=== PATIENT | female | born 1955 | race Caucasian/White ===

== ENCOUNTER 2022-06-09 08:18 | Outpatient (REF) | payer OTHER, SELFPAY ==
[2022-06-09 08:39] LABS: MANUAL DIFF FLAG NO
[2022-06-09 08:57] LABS: Basophils Percent Auto 0.5 % (0-2); Eosinophils Absolute Auto 0.2 X10*3/uL (0.0-0.4); Eosinophils Percent Auto 2.8 % (0-4); Hematocrit 40.2 % (37.0-47.0); Hemoglobin 13.7 g/dl (12.0-16.0); Imm Gran Abs Auto 0.03 X10*3/uL (0.00-0.03); Imm Gran Pct Auto 0.5 % (0.0-0.4); Lymphocytes Absolute Auto 2.2 X10*3/uL (1.2-4.9); Lymphocytes Percent Auto 35.3 % (20-40); Mean Corpuscular HGB Conc 34.1 g/dl (31.0-35.0); Mean Corpuscular Hemoglobin 30.2 pg (27.0-33.0); Mean Corpuscular Volume 88.5 fL (80.0-98.0); Mean Platelet Volume 9.8 fL (9.4-12.3); Monocytes Absolute Auto 0.4 X10*3/uL (0.1-1.2); Monocytes Percent Auto 6.8 % (2-11); Neutrophils Absolute Auto 3.3 x10*3/uL (2.0-8.3); Neutrophils Percent Auto 54.1 % (45-73); Platelet Count 242 X10*3/uL (160-400); Red Blood Count 4.54 X10*6/uL (4.20-5.50); Red Cell Distribution Width 12.4 % (11.0-16.0); White Blood Count 6.2 X10*3/uL (4.8-10.8)
[2022-06-09 09:16] LABS: Alanine Aminotransferase 18 U/L (0-31); Albumin Level 4.5 g/dL (3.5-5.0); Alkaline Phosphatase 66 U/L (39-117); Anion Gap 15 (12-20); Aspartate Amino Transferase 22 U/L (5-31); Bilirubin Total 0.9 mg/dL (0.0-1.0); Blood Urea Nitrogen 19 mg/dL (9-16); Calcium 9.4 mg/dL (8.4-10.2); Carbon Dioxide 26 mmol/L (22-29); Chloride 106 mmol/L (96-108); Cholesterol 167 mg/dL; Estimated Glomerular Filt Rate > 60; Glucose Fasting 98 mg/dL (60-99); HDL Cholesterol 60 mg/dL; LDL Cholesterol Calculated 85 mg/dl; Potassium 5.1 mmol/L (3.3-5.1); Sodium 142 mmol/L (135-145); Total Protein 7.2 g/dL (6.5-8.0); Triglycerides 114 mg/dL
[2022-06-09 09:40] LABS: Vitamin D 25-OH Total 38.6 ng/mL (>30)
[2022-06-09 09:57] LABS: Appearance Urine HAZY; Color Urine YELLOW; Glucose Urine UA NEG (NEG); Leukocyte Esterase Urine 3+ (NEG); Nitrite Urine NEG (NEG); Urine Blood 2+ (NEG); Urine Ketones NEG (NEG); Urine Protein NEG (NEG-TRACE)
[2022-06-09 11:00] LABS: Bacteria Urine 3+ /LPF; Renal Epithelial Cells Urine TRACE /LPF; Squamous Epithelial Cell Urine 3+ /LPF; WBC Urine 50-75 /HPF (0-4)
== END 2022-06-09 08:19 | disposition home or self-care (01) ==
LOC: HO.LAB 08:18
PROVIDERS: PCP Internal Medicine; Visit Provider Internal Medicine
DX: E78.00 Pure hypercholesterolemia, unspecified (principal); K21.9 Gastro-esophageal reflux disease without esophagitis; M81.0 Age-related osteoporosis without current pathological fracture; R31.9 Hematuria, unspecified
CPT/HCPCS: 36415; 80053; 80061; 81001; 82306; 85025

== ENCOUNTER 2022-06-19 11:35 | Outpatient (REF) | payer OTHER, SELFPAY ==
[2022-06-19 14:55] LABS: Appearance Urine Clear; Color Urine Dark Yellow; Glucose Urine UA Negative (Negative); Leukocyte Esterase Urine Small (1+) (Negative); Nitrite Urine Negative (Negative); PH 5.5 (5.0-8.0); Urine Blood Negative (Negative); Urine Ketones Trace mg/dL (Negative); Urine Protein Negative (Neg-Trace)
[2022-06-19 15:03] LABS: Bacteria Urine None Seen (None Seen); Hyaline Casts Urine 0-2 /LPF (0-2); Squamous Epithelial Cell Urine 0-2 /HPF (0-2); UACC Culture Trigger YES
== END 2022-06-19 11:36 | disposition home or self-care (01) ==
LOC: HO.LAB 11:35
PROVIDERS: Visit Provider Urology
DX: N39.0 Urinary tract infection, site not specified (principal)
CPT/HCPCS: 81001; 87086

== ENCOUNTER 2022-12-30 15:29 | Outpatient (REF) | payer MEDICARE, SELFPAY ==
[2022-12-30 15:52] LABS: MANUAL DIFF FLAG NO
[2022-12-30 16:28] LABS: Basophils Percent Auto 0.5 % (0-2); Eosinophils Absolute Auto 0.2 X10*3/uL (0.0-0.4); Eosinophils Percent Auto 2.6 % (0-4); Hematocrit 39.1 % (37.0-47.0); Hemoglobin 13.8 g/dl (12.0-16.0); Imm Gran Abs Auto 0.03 X10*3/uL (0.00-0.03); Imm Gran Pct Auto 0.5 % (0.0-0.4); Lymphocytes Absolute Auto 2.3 X10*3/uL (1.2-4.9); Lymphocytes Percent Auto 34.9 % (20-40); Mean Corpuscular HGB Conc 35.3 g/dl (31.0-35.0); Mean Corpuscular Hemoglobin 30.7 pg (27.0-33.0); Mean Corpuscular Volume 87.1 fL (80.0-98.0); Mean Platelet Volume 9.8 fL (9.4-12.3); Monocytes Absolute Auto 0.5 X10*3/uL (0.1-1.2); Monocytes Percent Auto 6.8 % (2-11); Neutrophils Absolute Auto 3.6 x10*3/uL (2.0-8.3); Neutrophils Percent Auto 54.7 % (45-73); Platelet Count 251 X10*3/uL (160-400); Red Blood Count 4.49 X10*6/uL (4.20-5.50); Red Cell Distribution Width 12.7 % (11.0-16.0); White Blood Count 6.6 X10*3/uL (4.8-10.8)
[2022-12-30 17:02] LABS: Anion Gap 13 (12-20); Blood Urea Nitrogen 14 mg/dL (9-16); Calcium 9.1 mg/dL (8.4-10.2); Carbon Dioxide 28 mmol/L (22-29); Chloride 104 mmol/L (96-108); Estimated Glomerular Filt Rate > 60; Glucose Random 91 mg/dL (60-115); Potassium 4.2 mmol/L (3.3-5.1); Sodium 141 mmol/L (135-145)
[2022-12-30 17:45] LABS: Appearance Urine Clear; Color Urine Yellow; Glucose Urine UA Negative (Negative); Leukocyte Esterase Urine Moderate (2+) (Negative); Nitrite Urine Negative (Negative); PH 5.5 (5.0-9.0); Specific Gravity - Urine 1.015 (1.005-1.025); UMIC TRIGGER UACC YES; Urine Blood Small (1+) (Negative); Urine Ketones Negative (Negative); Urine Protein Trace mg/dL (Neg-Trace)
[2022-12-30 18:02] LABS: Bacteria Urine None Seen (None Seen); Hyaline Casts Urine 0-2 /LPF (0-2); Squamous Epithelial Cell Urine 0-2 /HPF (0-2); UACC Culture Trigger YES; WBC Urine 21-50 /HPF (0-5)
== END 2022-12-30 15:30 | disposition home or self-care (01) ==
LOC: HO.LAB 15:29
PROVIDERS: PCP Internal Medicine; Visit Provider Internal Medicine
DX: Z01.818 Encounter for other preprocedural examination (principal); N21.0 Calculus in bladder
CPT/HCPCS: 36415; 80048; 81001; 85025; 87086

== ENCOUNTER → 2023-01-08 07:39 | Outpatient (REF) | payer MEDICARE, SELFPAY ==
--- NOTE | 2023-01-08 | CA_ITS ---
Acquisition Time: 2023-01-08 08:06:24 Total Exercise Time: 00:06:00 Test Indications: ABN EKG Medications: SEE CHART Protocol: JULIEN Max HR: 144 BPM 95% of Pred: 151 BPM Max BP: 150/070 mmHG Max Work Load: 7.0 METS PT EXERCISED ON STD JULIEN PROTOCOL FOR 6 MIN THRU STAGE 2. MAX HR 144-95%MAX. NO CP. NO EKG CHANGES. MILD SOB FROM DECONDITIONING. CLINICALLY AND ELEC NEG Referred By: Gagandeep Mccoy Overread By: ANDREA MCCOY MD
== END ==
LOC: HO.CARD 07:39
PROVIDERS: Visit Provider Internal Medicine
DX: R94.31 Abnormal electrocardiogram [ECG] [EKG] (principal)
CPT/HCPCS: 93017

== ENCOUNTER 2023-04-24 08:33 | Outpatient (REF) | payer MEDICARE, SELFPAY ==
[2023-04-24 11:27] LABS: MANUAL DIFF FLAG NO
[2023-04-24 11:30] LABS: Appearance Urine Clear; Color Urine Yellow; Glucose Urine UA Negative (Negative); Leukocyte Esterase Urine Negative (Negative); Nitrite Urine Negative (Negative); PH 5.5 (5.0-9.0); Specific Gravity - Urine 1.015 (1.005-1.025); Urine Blood Negative (Negative); Urine Ketones Negative (Negative); Urine Protein Negative (Neg-Trace)
[2023-04-24 11:39] LABS: Basophils Percent Auto 0.4 % (0-2); Eosinophils Absolute Auto 0.1 X10*3/uL (0.0-0.4); Eosinophils Percent Auto 2.4 % (0-4); Hematocrit 40.5 % (37.0-47.0); Hemoglobin 13.8 g/dl (12.0-16.0); Imm Gran Abs Auto 0.01 X10*3/uL (0.00-0.03); Imm Gran Pct Auto 0.2 % (0.0-0.4); Lymphocytes Absolute Auto 2.3 X10*3/uL (1.2-4.9); Lymphocytes Percent Auto 42.7 % (20-40); Mean Corpuscular HGB Conc 34.1 g/dl (31.0-35.0); Mean Corpuscular Hemoglobin 29.1 pg (27.0-33.0); Mean Corpuscular Volume 85.4 fL (80.0-98.0); Mean Platelet Volume 10.1 fL (9.4-12.3); Monocytes Absolute Auto 0.4 X10*3/uL (0.1-1.2); Monocytes Percent Auto 7.1 % (2-11); Neutrophils Absolute Auto 2.6 x10*3/uL (2.0-8.3); Neutrophils Percent Auto 47.2 % (45-73); Platelet Count 258 X10*3/uL (160-400); Red Blood Count 4.74 X10*6/uL (4.20-5.50); Red Cell Distribution Width 12.3 % (11.0-16.0); White Blood Count 5.5 X10*3/uL (4.8-10.8)
[2023-04-24 12:16] LABS: Alanine Aminotransferase 12 U/L (0-31); Albumin Level 4.4 g/dL (3.5-5.0); Alkaline Phosphatase 74 U/L (39-117); Anion Gap 12 (12-20); Aspartate Amino Transferase 23 U/L (5-31); Bilirubin Total 1.1 mg/dL (0.0-1.0); Blood Urea Nitrogen 19 mg/dL (9-16); Calcium 9.6 mg/dL (8.4-10.2); Carbon Dioxide 24 mmol/L (22-29); Chloride 108 mmol/L (96-108); Cholesterol 201 mg/dL; Estimated Glomerular Filt Rate > 60; Glucose Fasting 96 mg/dL (60-99); HDL Cholesterol 53 mg/dL; LDL Cholesterol Calculated 130 mg/dl; Potassium 4.1 mmol/L (3.3-5.1); Sodium 140 mmol/L (135-145); Total Protein 7.2 g/dL (6.5-8.0); Triglycerides 92 mg/dL
[2023-04-24 12:19] LABS: Creatinine Urine 116.16 mg/dL
[2023-04-24 12:33] LABS: TSH reflex Free T4 2.14 uIU/mL (0.32-4.0)
== END 2023-04-24 08:34 | disposition home or self-care (01) ==
LOC: HO.HMGCLDS 08:33
PROVIDERS: PCP Family Medicine; Visit Provider Family Medicine
DX: Z00.00 Encounter for general adult medical examination without abnormal findings (principal); I10 Essential (primary) hypertension
CPT/HCPCS: 36415; 80053; 80061; 81003; 82043; 84443; 85025

== ENCOUNTER 2023-06-10 13:45 | Outpatient (AMB) | payer MEDICARE, SELFPAY ==
--- NOTE | 2023-06-10 13:47 | MHC.PC.OV ---
Vital Signs 06/10/23 13:49 Height 5 ft 1 in Weight 164 lb 4 oz BMI 31.0 BP 110/70 Blood Pressure Location Lt brachial Position Sitting Pulse 67 Pulse Source Pulse Oximeter Pulse Oximetry (%) 98 Oxygen Delivery Method Room Air Intake Visit Reasons: CPE with f/u labs and health maintenance Intake Note: Patient is here for her physical today, she is looking for dermatology referral. Allergies cobalt Allergy (Unknown, Verified 06/10/23 13:53) Eye Swelling anesthesia Adverse Reaction (Mild, Uncoded 06/10/23 13:53) Nausea and Vomiting Narcotic Medications Adverse Reaction (Mild, Uncoded 06/10/23 13:53) Nausea and Vomiting Tobacco use date assessed: 06/10/23 Fall risk assessment: No Falls in past year Last assessed Fall Risk: 06/10/23 Dental Screening Dental Screen Date: 06/10/23 Did you have a dental visit in the last 12 months?: No Did you have a dental problem in the last 6 months where you did not have access to dental care?: No Was dental information given to patient?: Patient declined HPI CPE with f/u labs and health maintenance HPI Details 67 y/o female presents for a CPE with f/u labs and health maintenance. Labs were drawn 04/24/23. Reviewed labs with pt. Triglycerides 92. TC 201. LDL 130. HDL 53. She is on simvastatin 40mg daily. Pt reports ongoing concerns about a spot on her cheek and states she has never gotten a call from dermatology. 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 Norberto Staton, Tresa Mckenna, Ivna Schneider and colleagues, with an educational gutierrez from [employer]. Review of Systems Const Denies chills, Denies fatigue, Denies fever(s), Denies headache(s) and Denies weakness Eyes Denies change in vision ENT Denies dizziness, Denies headache(s), Denies hearing loss, Denies nasal congestion, Denies sinus pain, Denies sinus pressure and Denies sore throat Card Denies chest pain, Denies lightheadedness, Denies dyspnea and Denies other (palpitations) Resp Denies cough, Denies dyspnea and Denies wheezing GI Denies abdominal pain, Denies melena, Denies hematochezia, Denies change in bowel habits, Denies dyspepsia and Denies nausea Denies hematuria and Denies dysuria Musc Denies abnormal gait, Denies myalgias, Denies arthralgias, Denies numbness and Denies tingling Skin/Breast Denies rash, Denies unusual bruising and Denies wounds Neuro Denies abnormal gait, Denies dizziness, Denies headache(s), Denies memory loss, Denies numbness, Denies Sensory deficit (Neuro), Denies tingling and Denies weakness Psych Denies anxiety, Denies depression and Denies memory loss Endo Denies cold intolerance, Denies fatigue, Denies heat intolerance, Denies polydipsia and Denies polyuria Shankar/Lymph Denies easy bleeding and Denies easy bruising Aller/Immun Denies wheezing Physical exam (Primary Care) Vital Signs: Last Vital Signs Pulse 67 06/10/23 13:49 BP 110/70 06/10/23 13:49 Pulse Ox 98 06/10/23 13:49 Oxygen Delivery Method Room Air 06/10/23 13:49 BMI result Body Mass Index 31.0 Tobacco/Smoking Status: Tobacco use Status Tobacco use date assessed 06/10/23 06/10/23 14:01 Patient Tobacco Use Status Never used Tobacco 06/10/23 13:49 e-Cigarette/Vaping Use Never Used 06/10/23 13:49 Thrive Assessment: Date of Thrive Assessment Date Thrive assessed 04/16/23 06/10/23 13:49 Const General: no acute distress, well developed, alert and awake Nutritional Appearance: well nourished Orientation/consciousness: patient oriented x3 HENMT Head: Yes normocephalic and Yes atraumatic Ears: hearing grossly normal bilaterally and TM's normal bilaterally General nose exam: Normal external nose present and Normal nares present Mouth: Normal oral and palatal mucosa present and moist mucous membranes Teeth and gingiva: dentition normal Throat: Yes posterior oropharynx normal Eyes General: appearance normal, both eyes and all related structures Pupils: Equal, round and reactive pupils present and Pupil accommodation reflex normal EOM: EOMs intact bilaterally Neck Neck: Yes normal visual inspection, Yes no lymphadenopathy and Yes trachea midline Thyroid: Thyroid normal Carotids: no bruits Lymphatic: no lymphadenopathy noted Chest Chest palpation & inspection: normal inspection of the chest Resp Effort & Inspection: normal respiratory effort Auscultation: clear to auscultation bilaterally Cardio Rate: regular rate Rhythm: regular rhythm Heart sounds: S1 normal heart sound present, S2 normal heart sound present, no gallops, no murmurs and no rubs Bruits: no abdominal aortic bruits and no carotid bruits GI Palpation (GI): No Abdominal aortic bruit present, Soft to palpation, nontender, No hepatosplenomegaly present and No Rebound tenderness present Auscultation: normal bowel sounds General: Yes no CVA tenderness Back/Spine/Pelvis Back: no CVA tenderness Cervical Spine: cervical ROM normal and No Cervical spine tenderness Thoracic/Lumbar Spine: thoraco-lumbar ROM normal, No pain with thoraco-lumbar ROM, No thoracic spinal tenderness and No lumbar spinal tenderness Skin Other: Melanotic lesion on the side of her L cheek about 1.5cm in diameter Lesions: no lesions Rashes: no rashes Trauma: no lacerations or abrasions Wounds: no wounds Nails: normal Neuro General: patient oriented x3 Cranial nerves: Yes Equal, round and reactive pupils present Cognition (Neuro): normal cognition Gait exam (Neuro): Normal gait present Motor exam (neuro): 5/5 motor strength present throughout Sensory Exam: No Sensory deficit (Neuro) Deep tendon reflexes (DTR's): Right patellar reflex intensity grade: 2+ and Left patellar reflex intensity grade: 2+ Extrem General: Yes normal to inspection and No edema Psych Appearance: grossly normal Affect: normal affect Attitude: cooperative Thought process: Normal thought process present Assessment and Plan Assessment & Plan (1) Neoplasm of uncertain behavior of skin: Code(s): D48.5 - Neoplasm of uncertain behavior of skin Plan: Referred to dermatology at patient request (2) Hyperlipidemia: Code(s): E78.5 - Hyperlipidemia, unspecified Plan: She is on simvastatin LDL cholesterol is borderline but her HDL ratios are okay Encouraged diet lower in saturated fats and cholesterol Continue simvastatin as prescribed (3) Breast cancer screening by mammogram: Code(s): Z12.31 - Encounter for screening mammogram for malignant neoplasm of breast Plan: Due for mammogram-ordered (4) Screening for colon cancer: Code(s): Z12.11 - Encounter for screening for malignant neoplasm of colon Plan: Patient had a colonoscopy 1-2 years ago in [place]. She was told to follow-up in 5 years She is up-to-date (5) Immunization counseling: Code(s): Z71.85 - Encounter for immunization safety counseling Plan: Recommended pneumonia shot, flu shot and RSV. She has gotten her shingles shot Also discussed hepatitis B shot though patient is rather low risk Orders: Orders MM screening mammo BI Today Z12.31 - Encounter for screening mammogram for malignant neoplasm of breast Referrals Dermatology Referral D48.5 - Neoplasm of uncertain behavior of skin Coding Level of Care Code Est Pt Level 3 (06460) Est Pt Prev Care >65y(34616) Diagnoses Neoplasm of uncertain behavior of skin D48.5 Hyperlipidemia E78.5 Breast cancer screening by mammogram Z12.31 Screening for colon cancer Z12.11 Immunization counseling Z71.85
[2023-06-10 13:49] VITALS: BP 110/70; PULSE 67; O2SAT 98; BMI 31.0
== END 2023-06-10 14:34 | disposition home or self-care (01) ==
PROVIDERS: PCP Family Medicine; Visit Provider Family Medicine
DX: Z00.00 Encounter for general adult medical examination without abnormal findings (principal); D48.5 Neoplasm of uncertain behavior of skin; E78.5 Hyperlipidemia, unspecified; Z71.85 Encounter for immunization safety counseling
CPT/HCPCS: 99397

== ENCOUNTER 2023-07-10 08:37 | Outpatient (REF) | payer MEDICARE, SELFPAY | END 2023-07-10 08:38 | disposition home or self-care (01) | LOC: HO.MAMMO 08:37 | PROVIDERS: PCP Family Medicine; Visit Provider Family Medicine | DX: Z12.31 Encounter for screening mammogram for malignant neoplasm of breast (principal) | CPT/HCPCS: 77063; 77067 ==

== ENCOUNTER → 2023-07-10 08:45 | Outpatient (BNV) | payer MEDICARE, SELFPAY | PROVIDERS: PCP Family Medicine; Visit Provider Radiology Diagnostic Radiology | DX: Z12.31 Encounter for screening mammogram for malignant neoplasm of breast (principal) | CPT/HCPCS: 77063; 77067 ==

== ENCOUNTER 2023-12-30 08:27 | Outpatient (AMB) | payer MEDICARE, SELFPAY ==
[2023-12-30 08:31] VITALS: BP 130/70; PULSE 76; TEMP 36.3; O2SAT 97; BMI 31.0
--- NOTE | 2023-12-30 08:31 | AM.OFFWIN_ITS ---
Intake Vital Signs 12/30/23 08:31 Height 5 ft 1 in Weight 164 lb BMI 31.0 BP 130/70 Blood Pressure Location Lt brachial Position Sitting Pulse 76 Pulse Source Pulse Oximeter Temp 97.4 F Temp Source Temporal Artery Scan Pulse Oximetry (%) 97 Oxygen Delivery Method Room Air Intake Visit Reasons: EP Lft back leg pain Intake Note: pt is here today for lft back leg pain started Patient Tobacco Use Status: Never used Tobacco Allergies cobalt Allergy (Unknown, Verified 12/30/23 08:32) Eye Swelling anesthesia Adverse Reaction (Mild, Uncoded 06/10/23 13:53) Nausea and Vomiting Narcotic Medications Adverse Reaction (Mild, Uncoded 06/10/23 13:53) Nausea and Vomiting Do you need a note to return to daycare/school/sports/work: No HPI HPI Comments History of Present Illness Details 68 y/o female patient who presents to [facility] in clinic with c/o left lower leg pain - back of the knee. Pt injured her leg back in March, and has since been applying heat/ice, stretching and taking NSAIDs with no much relief. Pt is worried that she might have injured ligaments or Tendons. 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 Cognitive needs: No Hearing needs: No Vision needs: Yes (Last eye exam 2021) Review of Systems Const All systems reviewed & are unremarkable except as noted in HPI and below Physical Exam Vital Signs: Last Vital Signs Temp 97.4 F 12/30/23 08:31 Pulse 76 12/30/23 08:31 BP 130/70 12/30/23 08:31 Pulse Ox 97 12/30/23 08:31 Oxygen Delivery Method Room Air 12/30/23 08:31 BMI result Body Mass Index 31.0 Const General: comfortable and no acute distress Orientation/consciousness: patient oriented x3 Neuro General: patient oriented x3 Gait exam (Neuro): Normal gait present Extrem Right lower extremity: normal to inspection, full ROM and normal capillary refill Left lower extremity: full ROM, no joint enlargement and knee Details: normal to inspection and normal ROM; no tenderness and no swelling; no edema Psych Speech and movement: Clear speech present Attitude: cooperative Assessment & Plan Assessment & Plan (1) Left knee pain: Code(s): M25.562 - Pain in left knee Qualifiers: Chronicity: chronic Qualified Code(s): M25.562 - Pain in left knee; G89.29 - Other chronic pain Plan: - Recommended low impact exercises like swimming or Yoga - Advise Stretching every time she gets up. - F/U with PCP for referrals to ORTHO or PT - Ibuprofen for pain relief - Advised to f/u with PCP for MRI Coding Level of Care Code Est Pt Level 3 (00993) Diagnoses Chronic pain of left knee M25.562; G89.29 Chronicity: chronic Time Spent (min) 15
== END 2023-12-30 09:16 | disposition home or self-care (01) ==
PROVIDERS: PCP Family Medicine; Visit Provider Nurse Practitioner Family
DX: M25.562 Pain in left knee (principal); G89.29 Other chronic pain
CPT/HCPCS: 99213

== ENCOUNTER 2024-01-06 08:07 | Outpatient (AMB) | payer MEDICARE, SELFPAY ==
[2024-01-06 08:20] VITALS: BP 118/70; PULSE 67; RESP 13; TEMP 36.4; O2SAT 98; BMI 31.2
--- NOTE | 2024-01-06 08:20 | AM.OFFWIN_ITS ---
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 Accompanied by: Self / Same As Patient Allergies cobalt Allergy (Unknown, Verified 01/06/24 09:13) Eye Swelling anesthesia Adverse Reaction (Mild, Uncoded 01/06/24 09:13) Nausea and Vomiting Narcotic Medications Adverse Reaction (Mild, Uncoded 01/06/24 09:13) Nausea and Vomiting Medication List - Last Reconciled 01/06/24 by DIAMOND Ugalde-BC [clobestasol propionate 0.5% topical cream topically ; PRN; ] estradiol 0.01%(0.1mg/gram) grams vaginal simvastatin 40 mg PO DAILY Do you need a note to return to daycare/school/sports/work: No HPI HPI Comments History of Present Illness Details LEFT KNEE PAIN PULLED IT BACK IN MARCH PLAYING PICKLEBALL WENT TO MAINE RECENTLY AND IT STARTED TO BOTHER HER STARTED TO USE TOPICAL ARTHRITIS CREAM, FELT BETTER THEN LEAVING WORK ON THURSDAY, GOING DOWNSTAIRS, KNEE BUCKLED PAIN WAS EXCRUTIATING WAS ABLE TO BEAR WT HOWEVER PAINFUL HAS BEEN APPLYING TOPICAL PAIN PATCH; STOPPED USING ARTHRITIS CREAM USING NSAID WITH MILD RELIEF NO SURGERY PFSH Surgical History (Updated 04/16/23 @ 10:44 by Alirio Boswell) H/O right inguinal hernia repair History of repair of rectocele Social History Housing: House Patient Tobacco Use Status: Never used Tobacco e-Cigarette/Vaping Use: Never Used service: No Current occupational status: employed 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 Walking with a limp. Has pain with all range of motion passive and active of the left knee. Unable to bear weight without the knee feeling like it is going to give out. Neurovascularly intact. No edema ecchymosis or erythema of the joint. Assessment & Plan Assessment & Plan (1) Left knee pain: Comment: Referred to orthopedics for evaluation and treatment. Did not feel that there was a need for an x-ray. We will defer to Orthopedics on any imaging. I have prescribed meloxicam for her to take once daily. Advised not to take any NSAIDs while taking the meloxicam. If needed she can use Tylenol for breakthrough pain. Okay to continue supportive measures like heat, ice or anything else topical that provides pain relief for her. Code(s): M25.562 - Pain in left knee Qualifiers: Chronicity: chronic Qualified Code(s): M25.562 - Pain in left knee; G89.29 - Other chronic pain (2) Knee buckling: Code(s): M25.369 - Other instability, unspecified knee Qualifiers: Laterality: left Qualified Code(s): M25.362 - Other instability, left knee Plan This note is constructed using voice recognition software. While every effort has been made to ensure accuracy in day habilitation supervisor, still errors may have been included Sometimes, these errors may affect the content or meaning of the given sentence . Total time spent caring for the patient today was 40 minutes. This includes time spent before the visit reviewing the chart, time spent during the visit, and time spent after the visit on documentation Orders: Referrals Orthopedics Referral M25.562 - Pain in left knee Medications: New meloxicam 7.5 mg PO DAILY 30 tabs 0RF Patient Instructions: Glucosamine & Chondroitin OTC Coding Level of Care Code Est Pt Level 4 (61685) Diagnoses Chronic pain of left knee M25.562; G89.29 Chronicity: chronic Instability of left knee joint M25.362 Laterality: left
== END 2024-01-06 09:33 | disposition home or self-care (01) ==
PROVIDERS: PCP Family Medicine; Visit Provider Nurse Practitioner Family
DX: M25.562 Pain in left knee (principal); G89.29 Other chronic pain; M25.362 Other instability, left knee
CPT/HCPCS: 99214

== ENCOUNTER 2024-01-20 09:38 | Outpatient (REF) | payer MEDICARE, SELFPAY ==
--- NOTE | ~2024-01-20 | XR_ITS ---
EXAMINATION: XR KNEE, LEFT CLINICAL INFORMATION: Pain in left knee. COMPARISON: None available. TECHNIQUE: Three views of the left knee. FINDINGS: Moderate suprapatellar effusion. The bones are diffusely demineralized. Moderate narrowing of the lateral compartment with lateral marginal osteophytes. There is a 9 mm sclerotic focus with ill-defined margins in the distal diaphysis of the femur. Correlation with clinical exam, orthopedic consultation and possible dedicated imaging with MRI recommended to determine further management. XR/XR knee LT 3V IMPRESSION: 1. Moderate suprapatellar effusion. 2. Moderate degenerative changes lateral compartment. 3. There is a 9 mm sclerotic focus with ill-defined margins in the distal diaphysis of the femur. Correlation with clinical exam, orthopedic consultation and possible dedicated imaging with MRI recommended to determine further management.
== END 2024-01-20 09:39 | disposition home or self-care (01) ==
LOC: HO.HOSX 09:38
PROVIDERS: Visit Provider Orthopaedic Surgery
DX: M25.562 Pain in left knee (principal); M23.52 Chronic instability of knee, left knee; G89.29 Other chronic pain; Z79.899 Other long term (current) drug therapy
CPT/HCPCS: 73562; 99202

== ENCOUNTER 2024-01-20 12:42 | Outpatient (AMB) | payer MEDICARE, SELFPAY ==
[2024-01-20 12:48] VITALS: BMI 31.2
--- NOTE | 2024-01-20 12:48 | MHC.OFFVIS ---
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 Patient reports her pain has been going on for about 9 months and is a 5 on the 1-10 pain scale. She states she is taking an anti inflammatory with some relief. She has done physical therapy exercises which aggravated her pain. Most of the pain is along the medial aspect of her knee. She did injure her left knee while playing pickleball with her grandson last year. Allergies cobalt Allergy (Unknown, Verified 01/06/24 09:13) Eye Swelling anesthesia Adverse Reaction (Mild, Uncoded 01/06/24 09:13) Nausea and Vomiting Narcotic Medications Adverse Reaction (Mild, Uncoded 01/06/24 09:13) Nausea and Vomiting Medication List - Last Reconciled 01/20/24 by Geovanni Guerrero MD [clobestasol propionate 0.5% topical cream topically ; PRN; ] estradiol 0.01%(0.1mg/gram) grams vaginal meloxicam 7.5 mg PO DAILY simvastatin 40 mg PO DAILY PFSH Surgical History (Updated 04/16/23 @ 10:44 by Alirio Boswell) H/O right inguinal hernia repair History of repair of rectocele Social History Housing: House Patient Tobacco Use Status: Never used Tobacco e-Cigarette/Vaping Use: Never Used service: No Current occupational status: employed 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 Cognitive needs: No Hearing needs: No Vision needs: Yes (Last eye exam 2021) Physical Exam Vital Signs: BMI result Body Mass Index 31.2 Const Other: Well-nourished well-developed very friendly female awake alert and oriented x3 in no acute distress Extrem Other: Bilateral lower extremity examination shows good capillary refill, no skin lesions noted, normal sensation light touch Left knee examination shows a minimal effusion, minimal crepitus with range of motion, tenderness along her medial joint line, positive Breanna's test, no instability Results Reviewed Results Reviewed: Standing full weight-bearing x-rays of the patient's left knee show mild joint space narrowing, no acute bony abnormalities Assessment & Plan Assessment & Plan (1) Left knee pain: Code(s): M25.562 - Pain in left knee Qualifiers: Chronicity: chronic Qualified Code(s): M25.562 - Pain in left knee; G89.29 - Other chronic pain Plan Ms. Brower presents with left knee pain and mechanical symptoms most likely due to early degenerative joint disease as well as possible tearing of her medial meniscus. Thus, I will send the patient for an MRI of her left knee for further evaluation. I will see her back once the MRI is completed to discuss the findings and treatment options. She will contact me prior to that time should her symptoms worsen in any way. Feel free to call me at any time should questions regarding her orthopedic management arise. I spent 22 minutes in reviewing the patient's records and imaging studies, seeing the patient and documenting in the medical record. Orders: Orders XR knee LT 3V Today M25.562 - Pain in left knee Coding Level of Care Code New Pt Level 2 (34970) Diagnoses Chronic pain of left knee M25.562; G89.29 Chronicity: chronic
== END 2024-01-20 13:20 | disposition home or self-care (01) ==
PROVIDERS: PCP Family Medicine; Visit Provider Orthopaedic Surgery
DX: M25.562 Pain in left knee (principal); G89.29 Other chronic pain
CPT/HCPCS: 99202

== ENCOUNTER 2024-06-15 11:29 | Outpatient (AMB) | payer MEDICARE, SELFPAY ==
--- NOTE | 2024-06-15 11:42 | MHC.PC.OV ---
Vital Signs 06/15/24 11:52 Height 5 ft 1 in Weight 166 lb 4 oz BMI 31.4 BP 108/60 Blood Pressure Location Lt brachial Position Sitting Respiration 16 Pulse 72 Pulse Source Pulse Oximeter Temp 96.6 F L Temp Source Tympanic Pulse Oximetry (%) 97 Oxygen Delivery Method Room Air Intake Visit Reasons: CPE with f/u labs & health maint - see comments Intake Note: CPE Allergies cobalt Allergy (Unknown, Verified 06/15/24 11:43) Eye Swelling anesthesia Adverse Reaction (Mild, Uncoded 01/06/24 09:13) Nausea and Vomiting Narcotic Medications Adverse Reaction (Mild, Uncoded 01/06/24 09:13) Nausea and Vomiting Medication List - Last Reconciled 06/15/24 by Brennan Lara MD antiarthritic combination no.2 (glucosamine-chondroitin) mg PO estradiol 0.01%(0.1mg/gram) grams vaginal simvastatin 40 mg PO DAILY turmeric mg PO Tobacco use date assessed: 06/15/24 Fall risk assessment: 1 Fall in past year Last assessed Fall Risk: 06/15/24 Dental Screening Dental Screen Date: 06/15/24 Did you have a dental visit in the last 12 months?: Yes Did you have a dental problem in the last 6 months where you did not have access to dental care?: No Was dental information given to patient?: Patient has dentist HPI CPE with f/u labs & health maint - see comments HPI Details 68 y/o female presents for a CPE with f/u labs and health maintenance. No recent labs to review. Hx of hyperlipidemia and is on simvastatin 40mg daily. HPI Comments History of Present Illness Details Documentation assistance for Brennan Lara MD, was provided by Alirio Boswell, [employer] on 06/15/2024 at 12:41 PM EST. I, Dr. Lara, have read, observed, and verified documentation. 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 1. Little interest or pleasure in doing things: not at all 2. Feeling down, depressed, or hopeless: not at all 3. Trouble falling or staying asleep, or sleeping too much: not at all 4. Feeling tired or having little energy: not at all 5. Poor appetite or overeating: not at all 6. Feeling bad about yourself - or that you are a failure or have let yourself or your family down: not at all 7. Trouble concentrating on things, such as reading the newspaper or watching television: not at all 8. Moving or speaking so slowly that other people could have noticed. Or the opposite - being so fidgety or restless that you have been moving around a lot more than usual: not at all 9. Thoughts that you would be better off or of hurting yourself in some way: not at all Total score: 0 Depression Screening Interpretation: Negative Depression Screening Done: Yes 96155 - PHQ-9 Billing: Yes Source: Developed by Drs. Norberto Staton, Tresa Mckenna, Ivan Schneider and colleagues, with an educational gutierrez from [employer]. Thrive Questionnaire Date Thrive assessed: 06/15/24 I am a: Patient What is your living situation today?: I have a steady place to live Within the past 12 months, did the food you bought not last and you didn't have the money to get more?: Never true Within the past 12 months, did you worry whether your food would run out before you got money to buy more?: Never true Do you have trouble paying for medicines?: No Do you have trouble getting transportation to medical appointments?: No Do you have trouble paying your heating and electricity bill?: No Do you have trouble taking care of your child, family member or friend?: No Do you have trouble with day-to-day activities such as bathing, preparing meals, shopping, managing finances, etc.?: No Are you currently unemployed and looking for a job?: No Are you interested in more education?: No Please select the resources that you would like help with: None Currently or been in a relationship where the following occur: No concerns reported THRIVE Score: 0 AUDIT C Alcohol Use Questionnaire (AUDIT-C) 1. How often do you have a drink containing alcohol?: Monthly or less 2. How many drinks containing alcohol do you have on a typical day when you are drinking?: 1 or 2 3. How often do you have six or more drinks on one occasion?: Less than monthly Total Score: 2 Score Reviewed/Action Taken: Yes CHRISTIANO-7 AMB Questionnaire CHRISTIANO-7 Date CHRISTIANO - 7 assessed: 06/15/24 Feeling nervous, anxious, or on edge: 0 = Not at all Not being able to stop or control worryin = Not at all Worrying too much about different things: 0 = Not at all Trouble relaxin = Not at all Being so restless that it is hard to sit still: 0 = Not at all Becoming easily annoyed or irritable: 0 = Not at all Feeling afraid as if something awful might happen: 0 = Not at all Total CHRISTIANO-7 score (0-4 normal; 5-9 mild; 10-14 moderate; 15-21 severe): 0 Source: Developed by Drs. Norberto Staton, Tresa Mckenna, Ivan Schneider and colleagues, with an educational gutierrez from [employer]. CHRISTIANO-7 Assessment Billing CHRISTIANO-7 Assessment Tool: CHRISTIANO-7 Assessment 00509 Review of Systems Const Denies chills, Denies fatigue, Denies fever(s), Denies headache(s) and Denies weakness Eyes Denies change in vision ENT Denies dizziness, Denies headache(s), Denies hearing loss, Denies nasal congestion, Denies sinus pain, Denies sinus pressure and Denies sore throat Card Denies chest pain, Denies lightheadedness, Denies dyspnea and Denies other (palpitations) Resp Denies cough, Denies dyspnea and Denies wheezing GI Denies abdominal pain, Denies melena, Denies hematochezia, Denies change in bowel habits, Denies dyspepsia and Denies nausea Denies hematuria and Denies dysuria Musc Denies abnormal gait, Denies myalgias, Denies arthralgias, Denies numbness and Denies tingling Skin/Breast Denies rash, Denies unusual bruising and Denies wounds Neuro Denies abnormal gait, Denies dizziness, Denies headache(s), Denies memory loss, Denies numbness, Denies Sensory deficit (Neuro), Denies tingling and Denies weakness Psych Denies anxiety, Denies depression and Denies memory loss Endo Denies cold intolerance, Denies fatigue, Denies heat intolerance, Denies polydipsia and Denies polyuria Shankar/Lymph Denies easy bleeding and Denies easy bruising Aller/Immun Denies wheezing Physical exam (Primary Care) Vital Signs: Last Vital Signs Temp 96.6 F L 06/15/24 11:52 Pulse 72 06/15/24 11:52 Resp 16 06/15/24 11:52 BP 108/60 06/15/24 11:52 Pulse Ox 97 06/15/24 11:52 Oxygen Delivery Method Room Air 06/15/24 11:52 BMI result Body Mass Index 31.4 Tobacco/Smoking Status: Tobacco use Status Tobacco use date assessed 06/15/24 06/15/24 11:51 Patient Tobacco Use Status Never used Tobacco 06/15/24 11:51 e-Cigarette/Vaping Use Never Used 06/15/24 11:51 PHQ-9: PHQ-9 Score PHQ-9: Total score 0 06/15/24 12:23 Depression Screening Interpretation: Negative Thrive Assessment: Date of Thrive Assessment Date Thrive assessed 06/15/24 06/15/24 11:51 Currently or been in a relationship where the following occur: No concerns reported Const General: no acute distress, well developed, alert and awake Nutritional Appearance: well nourished Orientation/consciousness: patient oriented x3 HENMT Head: Yes normocephalic and Yes atraumatic Ears: hearing grossly normal bilaterally and TM's normal bilaterally General nose exam: Normal external nose present and Normal nares present Mouth: Normal oral and palatal mucosa present and moist mucous membranes Teeth and gingiva: dentition normal Throat: Yes posterior oropharynx normal Eyes General: appearance normal, both eyes and all related structures Pupils: Equal, round and reactive pupils present and Pupil accommodation reflex normal EOM: EOMs intact bilaterally Neck Neck: Yes normal visual inspection, Yes no lymphadenopathy and Yes trachea midline Thyroid: Thyroid normal Carotids: no bruits Lymphatic: no lymphadenopathy noted Chest Chest palpation & inspection: normal inspection of the chest Resp Effort & Inspection: normal respiratory effort Auscultation: clear to auscultation bilaterally Cardio Rate: regular rate Rhythm: regular rhythm Heart sounds: S1 normal heart sound present, S2 normal heart sound present, no gallops, no murmurs and no rubs Bruits: no abdominal aortic bruits and no carotid bruits GI Palpation (GI): No Abdominal aortic bruit present, Soft to palpation, nontender, No hepatosplenomegaly present and No Rebound tenderness present Auscultation: normal bowel sounds General: Yes no CVA tenderness Back/Spine/Pelvis Back: no CVA tenderness Cervical Spine: cervical ROM normal and No Cervical spine tenderness Thoracic/Lumbar Spine: thoraco-lumbar ROM normal, No pain with thoraco-lumbar ROM, No thoracic spinal tenderness and No lumbar spinal tenderness Skin Lesions: no lesions Rashes: no rashes Trauma: no lacerations or abrasions Wounds: no wounds Nails: normal Neuro General: patient oriented x3 Cranial nerves: Yes Equal, round and reactive pupils present Cognition (Neuro): normal cognition Gait exam (Neuro): Normal gait present Motor exam (neuro): 5/5 motor strength present throughout Sensory Exam: No Sensory deficit (Neuro) Deep tendon reflexes (DTR's): Right patellar reflex intensity grade: 2+ and Left patellar reflex intensity grade: 2+ Extrem General: Yes normal to inspection and No edema Psych Appearance: grossly normal Affect: normal affect Attitude: cooperative Thought process: Normal thought process present Assessment and Plan Assessment & Plan (1) Adult general medical exam: Code(s): Z00.00 - Encounter for general adult medical examination without abnormal findings Plan: 68-year-old?female?presents?for?complete?physical?exam Encouraged?healthy?diet?with?active?lifestyle?and?plenty?of?exercise (2) Hyperlipidemia: Code(s): E78.5 - Hyperlipidemia, unspecified Plan: LDL?cholesterol?was?above?goal?of?less?than?100?at?her?last?check?a?year?ago. She?is?on?simvastatin We?will?recheck?her?lipids.??If?her?LDL?cholesterol?is?still?significantly?high,?we?discussed?that?we?may?want?to?consider?switching?to?atorvastatin?or?another?statin?medication. (3) Breast cancer screening by mammogram: Code(s): Z12.31 - Encounter for screening mammogram for malignant neoplasm of breast Plan: Due?for?her?next?mammogram?in?June. Mammogram?is?ordered (4) Screening for colon cancer: Code(s): Z12.11 - Encounter for screening for malignant neoplasm of colon Plan: Patient?had?a?colonoscopy?about?2?years?ago?and?was?told?to?follow-up?in?5?years?due?to?a?polyp She?does?not?have?a?pole climber?around?here.??We?can?refer?her?to?GI?at?[facility]?when?she?is?due?in?about?3?years (5) Screening for osteoporosis: Code(s): Z13.820 - Encounter for screening for osteoporosis Plan: Patient?says?she?had?a?bone?density?test?more?than?2?years?ago?which?was?normal Due?to?repeat?this Bone?density?test?is?ordered Orders: Orders MM tomosynthesis screening BI Today Z12.31 - Encounter for screening mammogram for malignant neoplasm of breast XR DEXA axial skeleton Today M81.0 - Age-related osteoporosis without current pathological fracture Coding Level of Care Code Est Pt Level 3 (58939) Est Pt Prev Care >65y(51389) Diagnoses Adult general medical exam Z00.00 Hyperlipidemia E78.5 Breast cancer screening by mammogram Z12.31 Screening for colon cancer Z12.11 Screening for osteoporosis Z13.820 Additional Codes CHRISTIANO-7 Assessment Billing - CHRISTIANO-7 Assessment Tool: CHRISTIANO-7 Assessment 54558 ([id number])
[2024-06-15 11:52] VITALS: BP 108/60; PULSE 72; RESP 16; TEMP 35.9; O2SAT 97; BMI 31.4
== END 2024-06-15 13:01 | disposition home or self-care (01) ==
PROVIDERS: PCP Family Medicine; Visit Provider Family Medicine
DX: Z00.00 Encounter for general adult medical examination without abnormal findings (principal); E78.5 Hyperlipidemia, unspecified; Z12.31 Encounter for screening mammogram for malignant neoplasm of breast; Z12.11 Encounter for screening for malignant neoplasm of colon; Z13.820 Encounter for screening for osteoporosis
CPT/HCPCS: 99397

== ENCOUNTER 2024-06-16 09:19 | Outpatient (REF) | payer MEDICARE, SELFPAY ==
[2024-06-16 11:32] LABS: MANUAL DIFF FLAG NO
[2024-06-16 11:33] LABS: Appearance Urine Clear; Color Urine Yellow; Glucose Urine UA Negative (Negative); Leukocyte Esterase Urine Small (1+) (Negative); Nitrite Urine Negative (Negative); UMIC TRIGGER UA YES; Urine Blood Negative (Negative); Urine Ketones Negative (Negative); Urine Protein Negative (Neg-Trace)
[2024-06-16 11:35] LABS: Bacteria Urine None Seen (None Seen); Hyaline Casts Urine 0-2 /LPF (0-2); RBC Urine 0-2 /HPF (0-2); Squamous Epithelial Cell Urine 0-2 /HPF (0-2)
[2024-06-16 12:17] LABS: Basophils Percent Auto 0.4 % (0-2); Eosinophils Absolute Auto 0.2 X10*3/uL (0.0-0.4); Eosinophils Percent Auto 2.9 % (0-4); Hemoglobin 12.8 g/dl (12.0-16.0); Imm Gran Abs Auto 0.03 X10*3/uL (0.00-0.03); Imm Gran Pct Auto 0.6 % (0.0-0.4); Lymphocytes Absolute Auto 2.3 X10*3/uL (1.2-4.9); Lymphocytes Percent Auto 44.1 % (20-40); Mean Corpuscular HGB Conc 34.6 g/dl (31.0-35.0); Mean Corpuscular Hemoglobin 30.4 pg (27.0-33.0); Mean Corpuscular Volume 87.9 fL (80.0-98.0); Mean Platelet Volume 10.2 fL (9.4-12.3); Monocytes Absolute Auto 0.4 X10*3/uL (0.1-1.2); Monocytes Percent Auto 6.9 % (2-11); Neutrophils Absolute Auto 2.4 x10*3/uL (2.0-8.3); Neutrophils Percent Auto 45.1 % (45-73); Platelet Count 246 X10*3/uL (160-400); Red Blood Count 4.21 X10*6/uL (4.20-5.50); Red Cell Distribution Width 12.7 % (11.0-16.0); White Blood Count 5.2 X10*3/uL (4.8-10.8)
[2024-06-16 12:34] LABS: Alanine Aminotransferase 11 U/L (0-31); Albumin Level 4.1 g/dL (3.5-5.0); Alkaline Phosphatase 64 U/L (39-117); Anion Gap 11 (12-20); Aspartate Amino Transferase 20 U/L (5-31); Bilirubin Total 0.6 mg/dL (0.0-1.0); Blood Urea Nitrogen 23 mg/dL (9-16); Calcium 8.8 mg/dL (8.4-10.2); Carbon Dioxide 28 mmol/L (22-29); Chloride 107 mmol/L (96-108); Cholesterol 165 mg/dL (<200); Estimated Glomerular Filt Rate > 60; Glucose Fasting 93 mg/dL (60-99); HDL Cholesterol 55 mg/dL (>40); LDL Cholesterol Calculated 87 mg/dL (<100); Potassium 3.6 mmol/L (3.3-5.1); Sodium 142 mmol/L (135-145); Total Protein 6.7 g/dL (6.5-8.0); Triglycerides 118 mg/dL (<150)
[2024-06-16 12:49] LABS: Microalbum/Creatinine Ratio Ur 6.6 ug/mg cr (<30)
[2024-06-16 12:56] LABS: TSH reflex Free T4 2.39 uIU/mL (0.32-4.0)
== END 2024-06-16 09:20 | disposition home or self-care (01) ==
LOC: HO.WFDLDS 09:19
PROVIDERS: Visit Provider Family Medicine
DX: Z00.00 Encounter for general adult medical examination without abnormal findings (principal); I10 Essential (primary) hypertension
CPT/HCPCS: 36415; 80053; 80061; 81001; 82043; 82570; 84443; 85025

== ENCOUNTER 2024-07-21 07:48 | Outpatient (REF) | payer MEDICARE, SELFPAY ==
--- NOTE | ~2024-07-21 | MM_ITS ---
EXAMINATION: MM SCREENING DIGITAL BREAST TOMOSYNTHESIS, BILATERAL CLINICAL INFORMATION: Screening. Asymptomatic. COMPARISON: Mammography: Comparison is made with available priors TECHNIQUE: Digital breast mammography with tomosynthesis is performed in both the craniocaudal and mediolateral oblique views along with computer-aided detection (CAD). FINDINGS: The breasts are heterogeneously dense, which may obscure small masses (ACR BI-RADS breast composition Category c). There are no significant masses, abnormal calcifications, or other abnormalities. MM/MM tomosynthesis screening BI IMPRESSION: No mammographic evidence of malignancy. ASSESSMENT: BI-RADS BI-RADS 1 - Negative RECOMMENDATION: Routine annual mammography screening. 1 year F/U This examination should not preclude the clinical evaluation of a suspicious palpable abnormality. This patient's information was entered into a reminder system with a target due date for their next mammogram. Electronically signed by: Magali Soliz DO 08/01/2024 05:15 PM EDT
--- NOTE | ~2024-07-21 | MM_ITS ---
EXAMINATION: BONE DENSITOMETRY CLINICAL INDICATION: Age-related osteoporosis without current pathological fracture. COMPARISON: This is the patient's baseline examination. TECHNIQUE: Using a [employer] DXA System (software version: 13.1) manufactured by [employer], dual-energy x-ray absorptiometry was performed of the lumbar spine and left hip. The images are of good technical quality. Summary results are attached. FINDINGS: LEFT FEMUR, NECK: BMD 0.807 g/cm2, Z-score -0.1, T-score -1.7, osteopenia. LEFT FEMUR, TOTAL: BMD 0.866 g/cm2, Z-score 0.2, T-score -1.1, osteopenia. AP SPINE L1-L4: BMD 1.088 g/cm2, Z-score 0.6, T-score -0.8, normal. IDENTIFIED RISK FACTORS: Menopause, hysterectomy. HISTORY OF FRACTURE: None listed. MEDICATIONS: Multivitamins. MM/XR DEXA axial skeleton IMPRESSION: 1. DIAGNOSIS: Osteopenia based on the lowest T-score value of -1.7 in the femoral neck applying World Health Organization criteria. 2. 10-YEAR FRACTURE RISK PREDICTION, FRAX: Major osteoporotic fracture (clinical spine, forearm, hip or shoulder) 10.2%. Hip fracture 1.7%. 3. Treatment Recommendations: NOF guidelines recommend consideration for treatment in postmenopausal women and men age 50 and older presenting with the following: -A hip or vertebral (clinical or morphometric) fracture. -T-score less than or equal to -2.5 at the femoral neck or spine after appropriate evaluation to exclude secondary causes. -Low bone mass at the hip or spine and a 10-year fracture probability by FRAX of greater than or equal to 3% for hip fracture or greater than or equal to 20% for major osteoporotic fracture based on the [place] adapted WHO algorithm. 4. Other Recommendations: All treatment decisions require clinical judgment and consideration of individual patient factors, including patient preferences, comorbidities, previous drug use, risk factors not captured in the FRAX model (e.g. frailty, falls, vitamin D deficiency, increased bone turnover, interval significant decline in bone density) and possible under or overestimation of fracture risk by FRAX. Additional medical evaluation for secondary cause of low bone mineral density may be appropriate. FUTURE SCAN RECOMMENDATION: People with diagnosed cases of osteoporosis or at high risk for fracture should have regular bone mineral density tests. For patients eligible for Medicare, routine testing is allowed once every 2 years. The testing frequency can be increased to one year for patients who have rapidly progressing disease, those who are receiving or discontinuing medical therapy to restore bone mass, or have additional risk factors. Electronically signed by: Yohana Jordan MD 08/02/2024 08:45 AM EDT
== END 2024-07-21 07:49 | disposition home or self-care (01) ==
LOC: HO.MAMMO 07:48
PROVIDERS: PCP Family Medicine; Visit Provider Family Medicine
DX: Z12.31 Encounter for screening mammogram for malignant neoplasm of breast (principal); M81.0 Age-related osteoporosis without current pathological fracture
CPT/HCPCS: 77063; 77067; 77080

== ENCOUNTER → 2024-07-21 08:00 | Outpatient (BNV) | payer MEDICARE, SELFPAY | PROVIDERS: PCP Family Medicine; Visit Provider Internal Medicine | DX: Z12.31 Encounter for screening mammogram for malignant neoplasm of breast (principal) | CPT/HCPCS: 77063; 77067 ==

== ENCOUNTER → 2024-07-21 08:44 | Outpatient (AMB) | payer MEDICARE, SELFPAY ==
--- NOTE | 2024-07-21 08:39 | MHC.PC.OV ---
Intake Visit Reasons: f/u CPE-labs via telemedicine Allergies cobalt Allergy (Unknown, Verified 07/21/24 08:41) Eye Swelling anesthesia Adverse Reaction (Mild, Uncoded 01/06/24 09:13) Nausea and Vomiting Narcotic Medications Adverse Reaction (Mild, Uncoded 01/06/24 09:13) Nausea and Vomiting Tobacco use date assessed: 06/15/24 Dental Screening Dental Screen Date: 06/15/24 HPI f/u CPE-labs via telemedicine HPI Details 68 y/o female presents to f/u labs via telemedicine. Labs drawn 06/16/24. Reviewed labs with pt. Triglycerides 118. TC 165. LDL 87. HDL 55. She is on simvastatin 40mg daily. Mammogram and bone density done this morning. Results unavailable. HPI Comments History of Present Illness Details Documentation assistance for Brennan Lara MD, was provided by Alirio Boswell,? Clamper on 07/21/2024 at 8:50 AM EST. I, Dr. Lara, have read, observed, and verified documentation. 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 How often do you have six or more drinks on one occasion?: Never Total Score: 0 CHRISTIANO-7 AMB Questionnaire CHRISTIANO-7 Date CHRISTIANO - 7 assessed: 06/15/24 Source: Developed by Drs. Norberto Staton, Tresa Mckenna, Ivan Schneider and colleagues, with an educational gutierrez from [employer]. Review of Systems Const Denies chills, Denies fatigue, Denies fever(s), Denies headache(s) and Denies weakness ENT Denies dizziness and Denies headache(s) Card Denies dyspnea Resp Denies cough, Denies dyspnea, Denies wheezing and Denies other (shortness of breath) Musc Denies numbness and Denies tingling Neuro Denies dizziness, Denies headache(s), Denies numbness, Denies tingling and Denies weakness Psych Denies anxiety and Denies depression Endo Denies fatigue Aller/Immun Denies wheezing Physical exam (Primary Care) Tobacco/Smoking Status: Tobacco use Status Tobacco use date assessed 06/15/24 07/21/24 08:41 Patient Tobacco Use Status Never used Tobacco 07/21/24 08:41 e-Cigarette/Vaping Use Never Used 07/21/24 08:41 Thrive Assessment: Date of Thrive Assessment Date Thrive assessed 06/15/24 07/21/24 08:41 Telehealth Telehealth Telehealth Platform: Telephone Location of provider rendering services: practice address Location of patient: address on file Patient Identification confirmed using: Name, : Yes Telehealth method: voice only Patient verbally consented to treatment: Yes Patient verbally consented to billing insurance company: Yes Patient informed of any privacy concerns related to visit: Yes Minutes spent on Phone/Video with Pt.: 6 Assessment and Plan Assessment & Plan (1) Hyperlipidemia: Code(s): E78.5 - Hyperlipidemia, unspecified Plan: LDL is much improved and at goal of <100, on Simvastatin 40 Continue?current?medication Work?at?diet?exercise?and?weight?control Will?follow-up?in?about?6?months.??If?lipids?are?the?same?or?better, she?wants?to?discuss?decreasing?this (2) Breast cancer screening by mammogram: Code(s): Z12.31 - Encounter for screening mammogram for malignant neoplasm of breast Plan: Patient?had?mammogram?today?but?results?are?unavailable (3) Screening for osteoporosis: Code(s): Z13.820 - Encounter for screening for osteoporosis Plan: Patient?had?bone?density?test?today?but?results?are?unavailable Orders: Orders Comprehensive [place]. Panel Fast Today E78.5 - Hyperlipidemia, unspecified, Z00.00 - Encounter for general adult medical examination without abnormal findings Lipid Panel Today E78.5 - Hyperlipidemia, unspecified, Z00.00 - Encounter for general adult medical examination without abnormal findings Coding Level of Care Code Tele Est Pt Level 2 (29929) Diagnoses Hyperlipidemia E78.5 Breast cancer screening by mammogram Z12.31 Screening for osteoporosis Z13.820
--- OUTSIDE RECORDS SUMMARY | 2024-07-21 08:46 | XMS_ITS | Continuity of Care Document ---
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 Role Phone Jane HOLLOWAY, Brennan Berrios Primary Care Physician [phone] Encounter [facility] – [place] Date(s): 01/16/23 - 01/17/[address] [id number] Discharge Disposition: A-D/C Home Attending Physician: Wayne Zambrano MD Admitting Physician: Wayne Zambrano MD Referring Physician: Wayne Zambrano MD Allergies, Adverse Reactions, Alerts Substance Reaction Severity Status cobalt containing compounds Eye infection Active Medications acetaminophen 325 mg oral tablet 650 mg, Tablet, By Mouth, Every 4 hours, PRN for Pain , Mild, Routine, 01/16/23 16:03:00 EDT Start Date: 01/16/23 Stop Date: 02/15/23 Status: Ordered Bactrim DS 800 mg-160 mg oral tablet 1 tablet, By Mouth, Daily, # 14 tablet, 0 Refills, Acute 01/30/23 8:25:00 EDT, 01/17/23 8:25:00 EDT, Tablet, [facility] #[id number], Partial fill upon patient request if the prescription is for a schedule II opioid drug., 1 tablet By Mouth Daily,... Start Date: 01/17/23 Stop Date: 01/30/23 Status: Ordered biotin 2.5 mg oral tablet 1 tablet = 2.5 mg, By Mouth, Daily, # 30 tablet, 0 Refills, Maintenance, 01/15/23 10:18:00 EDT, Tablet, Partial fill upon patient request if the prescription is for a schedule II opioid drug. Start Date: 01/15/23 Status: Ordered clobetasol 0.05% topical ointment 1 application, Topically, Daily, # 15 Gm, 0 Refills, Maintenance, 01/15/23 10:21:00 EDT, Ointment, Partial fill upon patient request if the prescription is for a schedule II opioid drug. Start Date: 01/15/23 Status: Ordered Colace sodium 100 mg oral capsule 100 mg, 1, capsule, By Mouth, 2 times a day, PRN, # 20 capsule, Refills 0, Tot. Refills 0, Maintenance, for constipation, 01/17/23 8:24:00 EDT, Route to Pharmacy Electronically, [facility] #[id number], Partial fill upon patient request if the pre... Start Date: 01/17/23 Status: Ordered docusate sodium 100 mg oral tablet 1 tablet = 100 mg, By Mouth, Daily, PRN for constipation, # 100 tablet, 0 Refills, Maintenance, 01/15/23 10:19:00 EDT, Tablet, Partial fill upon patient request if the prescription is for a schedule II opioid drug. Start Date: 01/15/23 Status: Ordered Dulcolax 5 mg oral enteric coated tablet 2 tablet = 10 mg, By Mouth, Daily, PRN as needed for constipation, # 20 tablet, 0 Refills, Acute 01/21/23 8:24:00 EDT, 01/17/23 8:24:00 EDT, CR Tablet, [facility] #[id number], Partial fill upon patient request if the prescription is for a schedul... Start Date: 01/17/23 Stop Date: 01/21/23 Status: Ordered estradiol 0.1 mg/g vaginal cream = 1 Gm, Vaginally, Every Thursday, Thursday and Thursday, 0 Refills, Maintenance, 01/15/23 10:17:00 EDT, Partial fill upon patient request if the prescription is for a schedule II opioid drug. Start Date: 01/15/23 Status: Ordered Fiber Choice 1.5 g oral tablet, chewable 1 tablet = 1.5 Gm, Chew, Daily, # 90 tablet, 0 Refills, Maintenance, 01/15/23 10:20:00 EDT, Chew Tablet, Partial fill upon patient request if the prescription is for a schedule II opioid drug. Start Date: 01/15/23 Status: Ordered Multivitamin Daily, 0 Refills, Maintenance, 01/15/23 10:18:00 EDT, Partial fill upon patient request if the prescription is for a schedule II opioid drug. Start Date: 01/15/23 Status: Ordered nitrofurantoin macrocrystals-monohydrate 100 mg oral capsule 1 capsule = 100 mg, By Mouth, Daily in AM, # 28 capsule, 0 Refills, Maintenance, 01/15/23 10:16:00 EDT, Capsule, Partial fill upon patient request if the prescription is for a schedule II opioid drug. Start Date: 01/15/23 Stop Date: 01/29/23 Status: Ordered oxybutynin 5 mg/24 hours oral tablet, extended release 1 tablet = 5 mg, By Mouth, Daily, # 30 tablet, 0 Refills, Maintenance, 01/17/23 8:23:00 EDT, ER Tablet, [facility] #[id number], Partial fill upon patient request if the prescription is for a schedule II opioid drug., 155, cm, 01/17/23 4:59:00 EDT... Start Date: 01/17/23 Status: Ordered oxyCODONE 5 mg oral tablet 5 mg, 1, tablet, By Mouth, Every 6 hours, PRN, # 20 tablet, Refills 0, Tot. Refills 0, Acute 01/21/23 8:24:00 EDT, as needed for pain, 01/17/23 8:24:00 EDT, Route to Pharmacy Electronically, [facility] #[id number], Partial fill upon patient reque... Start Date: 01/17/23 Stop Date: 01/21/23 Status: Ordered oxyCODONE 5 mg oral tablet 5 mg, Tablet, By Mouth, Every 4 hours, PRN for Pain , Moderate, Routine, 01/16/23 11:00:00 EDT Start Date: 01/16/23 Stop Date: 01/23/23 Status: Ordered simvastatin 40 mg oral tablet 40 mg, 1, tablet, By Mouth, Daily at supper, # 30 tablet, Refills 0, Maintenance, 01/15/23 10:18:00EDT, Partial fill upon patient request if the prescription is for a schedule II opioid drug. Start Date: 01/15/23 Status: Ordered triamcinolone 0.1% topical cream 1 application, Topically, 4 times a day, PRN itch/bug bite, # 60 Gm, 0 Refills, Maintenance, 01/15/23 10:20:00 EDT, Cream, Partial fill upon patient request if the prescription is for a schedule II opioid drug. Start Date: 01/15/23 Stop Date: 01/29/23 Status: Ordered Problem List Condition Confirmation Course Effective Dates Status Health St atus Informant Obese class I Confirmed Active Vital Signs Most recent to oldest [Reference Range]: 1 2 3 Height 155 cm (01/17/23 4:59 AM) 155 cm (01/16/23 7:28 PM) 155 cm (01/16/23 2:37 PM) Weight 72.4 kg (01/16/23 2:37 PM) 72.4 kg (01/16/23 6:32 AM) 72 kg (01/15/23 10:06 AM) Oxygen Saturation [94-100 %] 95 % (01/17/23 11:00 AM) 97 % (01/17/23 7:00 AM) 98 % (01/17/23 4:59 AM) Pulse Rate [55-90 bpm] 118 bpm *H* (01/17/23 11:00 AM) 67 bpm (01/17/23 7:00 AM) 66 bpm (01/17/23 4:59 AM) Body Mass Index [18.5-24.99 kg/m2] 30.14 kg/m2 *>HHI* (01/16/23 2:37 PM) 30.14 kg/m2 *>HHI* (01/16/23 6:32 AM) 29.97 kg/m2 *H* (01/15/23 10:06 AM) Blood Pressure [90-138/55-84 mm Hg] 120/63mm Hg (01/17/23 11:00 AM) 127/61mm Hg (01/17/23 7:00 AM) 115/55mm Hg (01/17/23 4:59 AM) Respiratory Rate [16-30 br/min] 67 br/min *H* (01/17/23 11:00 AM) 20 br/min (01/17/23 10:33 AM) 20 br/min (01/17/23 10:33 AM) Temperature [96.8-100.4 DegF] 98.4 DegF (01/17/23 11:00 AM) 98.6 DegF (01/17/23 7:00 AM) 98.8 DegF (01/17/23 4:59 AM) Liters per Minute 3 L/min (01/17/23 11:00 AM) 6 L/min (01/16/23 10:15 AM) Mode of Delivery (Oxygen) Nasal cannula (01/17/23 11:00 AM) Room air (01/17/23 7:00 AM) Room air (01/17/23 4:59 AM) Blood pressure sites Arm, right (01/17/23 11:00 AM) Arm, right (01/17/23 7:00 AM) Arm, right (01/17/23 4:59 AM) Temperature Route Oral (01/17/23 11:00 AM) Oral (01/17/23 7:00 AM) Oral (01/17/23 4:59 AM) Dry Weight 72.4 kg (01/16/23 2:37 PM) 72.4 kg (01/16/23 6:32 AM) 72 kg (01/15/23 10:06 AM) Weight Obtained Via Bed scale (01/16/23 2:37 PM) Standing scale (01/16/23 6:32 AM) Patient/family stated (01/15/23 10:06 AM) Dry Weight Obtained Via Standing scale (01/16/23 6:32 AM) Patient/family stated (01/15/23 10:06 AM) Hospital Progress note * Wayne Zambrano MD: PERFORM, SIGN, VERIFY Event Display: Progress Note Hospital Authored Date: [id number] Patient: VIVIEN PERALES Age: 67 years Sex: Female : 1955 Associated Diagnoses: None Author: Wayne Zambrano MD LOS 1 days s/p open pelvic surgery She has good pain control Urine output is appropriate No post-surgical complications overnight Review of Systems Review of systems is Pain Management: controlled. Oral Intake: solids. Constitutional: no chills, no fever. Respiratory: no shortness of breath. Cardiovascular: no chest pain. Genitourinary: alfaro. Gastrointestinal: abdominal pain, no nausea, no vomiting. Physical Examination Physical exam Patient is: NAD. Abdomen/GI: Abdomen is (soft, with appropriate incisional tenderness). Drains: Urinary Alfaro Catheter. Impression and Plan COMPREHENSIVE PLAN s/p open pelvic surgery Home with alfaro catheter care instructions AMY drain removed pain controlled with oral medications; Rxs sent to [facility] pharmacy in [place] Encouraged ambulation and reviewed activity restrictions Pelvic surgery discharge instructions reviewed Quality/Care Management DVT Prophylaxis: pneumatic compression boots. * Raghu Mascorro RN: VERIFY, PERFORM, SIGN Event Display: Progress Note Hospital Authored Date: Patient: VIVIEN PERALES Age: 67 years Sex: Female : 1955 Associated Diagnoses: None Author: Raghu Mascorro RN Findings Problem Related to Alteration in Genitourinary : Alteration in Genitourinary Function/new 01/17/2023 8:00 EDT Alteration in Status Related to UTI, Other: Cystolithalopathy Goals & Outcomes, Genitourinary Pt will achieve normal/improved fluid balance, Pt will maintainadequate GI function appropriate for pt, Pt will maintain adequate function appropriate for pt, Pt will maintain normal fluid balance, Pt will resume normal pattern of elimination, Pt/caregiver will state understanding of self-care skills, Pt will report acceptable level of comfort/pain, Pt willnot experience S/S of infection prior to D/C, Pt will verbalize nutritional plan post surgery, Pt will verbalize when to follow up/call MD after D/C Interventions, Assess/monitor/maintain Genitourinary status, Assist & encourage pt with meticulous matthew care, Encourage PO fluid intake as allowed by diet, Assess for s/s of infection, Encourage pt to avoid gas producing foods & drink, Monitor effects of meds that improve motility, TeachPt/caregiver activity instructions, Teach Pt/caregiver pain management strategies, Teach Pt/caregiver re: wound care/wound clips/sutures, Assess/monitor effects of antibiotics, Assess/monitor s/s of urinary tract infection, Teach Pt/caregiver s/s of urinary tract infection Goals/Interventions, Genitourinary Yes Genitourinary, Problem Start 01/18/2023 5:04 Reviewed Plan with, Genitourinary Patient Patient Progression, Genitourinary Patient progressing according to plan Genitourinary, Problem Ongoing Yes . Nursing Data Cardiac Data. : Cardiac Data. 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 Gastrointestinal Data. : Gastrointestinal Data. 01/17/2023 8:00 EDT Gastrointestinal Symptoms None Abdomen Soft, Tender, Round LLQ Tenderness At rest, To palpation, With release of pressure LUQ Tenderness At rest, To palpation, With release of pressure RLQ Tenderness At rest, To palpation, With release of pressure RUQ Tenderness At rest, To palpation, With release of pressure Bowel Sounds All Quadrants Present Last Bowel Movement 01/15/2023 GI WNL except . Genitourinary Data. : Genitourinary Data. 01/17/2023 8:00 EDT Genitourinary Symptoms Urinary retention Urinary catheter type Single Lumen Indwelling Urinary Catheter Urinary catheter intervention Patent, no intervention Date of Insertion 01/16/2023 Urine Color Draper Urine Description Sediment WNL except Indication for Urinary Catheter Urinary retention; bladder obstruction . Integumentary Data. : Integumentary Data. 01/17/2023 8:00 EDT Skin Abnormality Dry, Fragile, Other: Mid abd aquacel dsg Intact w/sm amt of staining. L mid-abd surgical incision site/former AMY drain site Intact. MD notified/aware. Will continue to monitor Skin Integrity Not intact Sensory Perception No impairment Sensory Perception No impairment Moisture Rarely moist Activity Walks occasionally Activity Walks occasionally Mobility Slightly limited Mobility Slightly limited Nutrition Adequate Friction and Shear Problem Esvin Score 18 Nursing Care Plan initiated/updated Yes Integumentary WNL except . Musculoskeletal Data. : Musculoskeletal Data. 01/17/2023 8:00 EDT Musculoskeletal Symptoms Weakness Musculoskeletal WNL except . Neurological Data. : Neurological Data. 01/17/2023 8:00 EDT Tongue Disposition Midline Neurological Symptoms Weakness or loss of muscle strength Level of Consciousness Full Consciousness Orientated to person, place, time Person, Place, Time, Event Hallucinations None Facial Symmetry Intact Characteristics of Speech Clear and normal Swallowing Difficulty None Pupil description, left Regular Pupil description, right Regular Pupil reaction, left Brisk Pupil reaction, right Brisk Strength LUE 4-Active movement against gravity & some resistance Strength RUE 4-Active movement against gravity & some resistance Strength LLE 4-Active movement against gravity & some resistance Strength RLE 4-Active movement against gravity & some resistance Tone LUE Normal Tone RUE Normal Tone LLE Normal Tone RLE Normal Sensation LUE Intact Sensation RUE Intact Sensation LLE Intact Sensation RLE Intact Movement LUE To command Movement RUE To command Movement LLE To command Movement RLE To command Gait Steady Tremors None Response Eye Opening Spontaneously Motor Response-Adult Obeys commands Verbal Response-Adult Oriented and converses [place] Coma Score 15 1 - 10 Pain Scale Score 7 Neuro WNL except Headache None Memory Intact Swallow - Neuro Normal . Patient Care Data. : Patient Care Data. 01/17/2023 8:00 EDT Turn and Reposition Every two hours, With partial assist Sequential Compression Device Not ordered TEDS Not indicated/Not ordered ID band on Yes Allergy band in place/verified Yes Blood Pressure/Venipuncture All 4 limbs may be used Call Leary in Reach-Ensure Ability to Use Yes Patient Instructed on Use of Call Leary Yes Standard Safety Bed alert on, Bed in low position, Non-slip footwear, Upper/Half-length side-rails up, Wheels locked Pt Ed-Learning: Person Taught Patient Pt Ed-Learning: Learning Readiness Yes, alert and oriented Pt Ed-Learning: Learning Style Verbal Pain system assessment Detailed pain assessment Fall Elimination No impairment Fall Agitation/Anxiety/Depression No impairment Fall Related Sign/Symptom/Condition None Fall Cognitive Limitations No impairment Fall Sensory and Physical Function Fatigued, Weak, Requires Staff Assistance with Transfer Plan: Fall Sensory and Physical Function Encourage safe activities to maintain strength & mobility, Monitor patient's progress with physical activities Fall High Risk for Injury None of the above Total Falls Risk Score 6 Fall Risk Level High Risk Falls Prevention Plan for High Risk Fall risk decal outside of patient's room, Fall compliance and control analyst patient's chart, Apply yellow high fall risk wrist band to wrist, Ensure patient has yellow non-skid slippers, Supervise patient in the bathroom & shower, Activate bed exit alarm system, Evaluate footwear & ensure patient has non-skid slippers, Activate alternate alarm: bed (i.e. TABS), Bed in lowest locked position, Place personal care items & call leary within reach, Instruct patient/family to request assistance with ambulatio, Instruct patient/family not to get up without assistance, Supervise the patient when ambulating or making transfers, Check that needs are met to minimize attempts to get up, Hourly rounds, Ensure safe & uncluttered environment, Communicate falls risk to all providers . Respiratory/Pulmonary Data. 01/17/2023 8:00 EDT Respiratory Symptoms None Respiratory effort Unlabored Chest expansion Symmetrical Accessory Muscles use No Cough Non-productive Respiratory pattern Regular Left Upper Lobe Breath Sounds Clear Right Upper Lobe Breath Sounds Clear Right Middle Lobe Breath Sounds Clear Left Lower Lobe Breath Sounds Clear Right Lower Lobe Breath Sounds Clear Respiratory distress None Respiratory Treatment(s) Cough and deep breathe Respiratory WNL except . Vital Signs : VITAL SIGNS SECTION 01/17/2023 7:00 EDT Temperature 98.6 DegF Temperature Route Oral Pulse Rate 67 bpm Respiratory Rate 18 br/min Systolic Blood Pressure 127 mm Hg Diastolic Blood Pressure 61 mm Hg Blood pressure sites Arm, right Pulse Pressure 66 mm Hg Oxygen Saturation 97 % Mode of Delivery (Oxygen) Room air . Pain Data : PAIN SECTION 01/17/2023 8:00 EDT 1 - 10 Pain Scale Score 7 . Evaluation See Biophysical Assessment in CIS for complete assessment. WIll continue to monitor. * Raghu Mascorro RN: SIGN, VERIFY, PERFORM Event Display: Progress Note Hospital Authored Date: Patient: VIVIEN PERALES Age: 67 years Sex: Female : 1955 Associated Diagnoses: None Author: Raghu Mascorro RN Findings Problem Related to Alteration in Genitourinary : Alteration in Genitourinary Function/new 01/17/2023 8:00 EDT Alteration in Status Related to UTI, Other: Cystolithalopathy Goals & Outcomes, Genitourinary Pt will achieve normal/improved fluid balance, Pt will maintainadequate GI function appropriate for pt, Pt will maintain adequate function appropriate for pt, Pt will maintain normal fluid balance, Pt will resume normal pattern of elimination, Pt/caregiver will state understanding of self-care skills, Pt will report acceptable level of comfort/pain, Pt willnot experience S/S of infection prior to D/C, Pt will verbalize nutritional plan post surgery, Pt will verbalize when to follow up/call MD after D/C Interventions, Assess/monitor/maintain Genitourinary status, Assist & encourage pt with meticulous matthew care, Encourage PO fluid intake as allowed by diet, Assess for s/s of infection, Encourage pt to avoid gas producing foods & drink, Monitor effects of meds that improve motility, TeachPt/caregiver activity instructions, Teach Pt/caregiver pain management strategies, Teach Pt/caregiver re: wound care/wound clips/sutures, Assess/monitor effects of antibiotics, Assess/monitor s/s of urinary tract infection, Teach Pt/caregiver s/s of urinary tract infection Goals/Interventions, Genitourinary Yes Genitourinary, Problem Start 01/18/2023 5:04 Reviewed Plan with, Genitourinary Patient Patient Progression, Genitourinary Patient progressing according to plan Genitourinary, Problem Ongoing Yes . Nursing Data Cardiac Data. : Cardiac Data. 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 Gastrointestinal Data. : Gastrointestinal Data. 01/17/2023 8:00 EDT Gastrointestinal Symptoms None Abdomen Soft, Tender, Round LLQ Tenderness At rest, To palpation, With release of pressure LUQ Tenderness At rest, To palpation, With release of pressure RLQ Tenderness At rest, To palpation, With release of pressure RUQ Tenderness At rest, To palpation, With release of pressure Bowel Sounds All Quadrants Present Last Bowel Movement 01/15/2023 GI WNL except . Genitourinary Data. : Genitourinary Data. 01/17/2023 8:00 EDT Genitourinary Symptoms Urinary retention Urinary catheter type Single Lumen Indwelling Urinary Catheter Urinary catheter intervention Patent, no intervention Date of Insertion 01/16/2023 Urine Color Draper Urine Description Sediment WNL except Indication for Urinary Catheter Urinary retention; bladder obstruction . Integumentary Data. : Integumentary Data. 01/17/2023 8:00 EDT Skin Abnormality Dry, Fragile, Other: Mid abd aquacel dsg Intact w/sm amt of staining. L mid-abd surgical incision site/former AMY drain site Intact. notified/aware. Will continue to monitor Skin Integrity Not intact Sensory Perception No impairment Sensory Perception No impairment Moisture Rarely moist Activity Walks occasionally Activity Walks occasionally Mobility Slightly limited Mobility Slightly limited Nutrition Adequate Friction and Shear Problem Esvin Score 18 Nursing Care Plan initiated/updated Yes Integumentary WNL except . Musculoskeletal Data. : Musculoskeletal Data. 01/17/2023 8:00 EDT Musculoskeletal Symptoms Weakness Musculoskeletal WNL except . Neurological Data. : Neurological Data. 01/17/2023 8:00 EDT Tongue Disposition Midline Neurological Symptoms Weakness or loss of muscle strength Level of Consciousness Full Consciousness Orientated to person, place, time Person, Place, Time, Event Hallucinations None Facial Symmetry Intact Characteristics of Speech Clear and normal Swallowing Difficulty None Pupil description, left Regular Pupil description, right Regular Pupil reaction, left Brisk Pupil reaction, right Brisk Strength LUE 4-Active movement against gravity & some resistance Strength RUE 4-Active movement against gravity & some resistance Strength LLE 4-Active movement against gravity & some resistance Strength RLE 4-Active movement against gravity & some resistance Tone LUE Normal Tone RUE Normal Tone LLE Normal Tone RLE Normal Sensation LUE Intact Sensation RUE Intact Sensation LLE Intact Sensation RLE Intact Movement LUE To command Movement RUE To command Movement LLE To command Movement RLE To command Gait Steady Tremors None Response Eye Opening Spontaneously Motor Response-Adult Obeys commands Verbal Response-Adult Oriented and converses [place] Coma Score 15 1 - 10 Pain Scale Score 7 Neuro WNL except Headache None Memory Intact Swallow - Neuro Normal . Patient Care Data. : Patient Care Data. 01/17/2023 8:00 EDT Turn and Reposition Every two hours, With partial assist Sequential Compression Device Not ordered TEDS Not indicated/Not ordered ID band on Yes Allergy band in place/verified Yes Blood Pressure/Venipuncture All 4 limbs may be used Call Leary in Reach-Ensure Ability to Use Yes Patient Instructed on Use of Call Leary Yes Standard Safety Bed alert on, Bed in low position, Non-slip footwear, Upper/Half-length side-rails up, Wheels locked Pt Ed-Learning: Person Taught Patient Pt Ed-Learning: Learning Readiness Yes, alert and oriented Pt Ed-Learning: Learning Style Verbal Pain system assessment Detailed pain assessment Fall Elimination No impairment Fall Agitation/Anxiety/Depression No impairment Fall Related Sign/Symptom/Condition None Fall Cognitive Limitations No impairment Fall Sensory and Physical Function Fatigued, Weak, Requires Staff Assistance with Transfer Plan: Fall Sensory and Physical Function Encourage safe activities to maintain strength & mobility, Monitor patient's progress with physical activities Fall High Risk for Injury None of the above Total Falls Risk Score 6 Fall Risk Level High Risk Falls Prevention Plan for High Risk Fall risk decal outside of patient's room, Fall compliance and control analyst patient's chart, Apply yellow high fall risk wrist band to wrist, Ensure patient has yellow non-skid slippers, Supervise patient in the bathroom & shower, Activate bed exit alarm system, Evaluate footwear & ensure patient has non-skid slippers, Activate alternate alarm: bed (i.e. TABS), Bed in lowest locked position, Place personal care items & call leary within reach, Instruct patient/family to request assistance with ambulatio, Instruct patient/family not to get up without assistance, Supervise the patient when ambulating or making transfers, Check that needs are met to minimize attempts to get up, Hourly rounds, Ensure safe & uncluttered environment, Communicate falls risk to all providers . Respiratory/Pulmonary Data. : Respiratory/Pulmonary Data. 01/17/2023 8:00 EDT Respiratory Symptoms None Respiratory effort Unlabored Chest expansion Symmetrical Accessory Muscles use No Cough Non-productive Respiratory pattern Regular Left Upper Lobe Breath Sounds Clear Right Upper Lobe Breath Sounds Clear Right Middle Lobe Breath Sounds Clear Left Lower Lobe Breath Sounds Clear Right Lower Lobe Breath Sounds Clear Respiratory distress None Respiratory Treatment(s) Cough and deep breathe Respiratory WNL except . Vital Signs : VITAL SIGNS SECTION 01/17/2023 7:00 EDT Temperature 98.6 DegF Temperature Route Oral Pulse Rate 67 bpm Respiratory Rate 18 br/min Systolic Blood Pressure 127 mm Hg Diastolic Blood Pressure 61 mm Hg Blood pressure sites Arm, right Pulse Pressure 66 mm Hg Oxygen Saturation 97 % Mode of Delivery (Oxygen) Room air . Pain Data : PAIN SECTION 01/17/2023 8:00 EDT 1 - 10 Pain Scale Score 7 . Evaluation See Biophysical Assessment in CIS for complete assessment. Will continue to monitor. Note * Raghu Mascorro RN: PERFORM Event Display: Discharge/Transfer Note Hospital Authored Date: [id number] Nursing Discharge Note Entered On: 01/17/2023 14:25 EDT Performed On: 01/17/2023 14:20 EDT by Raghu Mascorro RN Nursing Discharge Note 2 Discharge Time : 01/17/2023 14:20 EDT Discharge Level of Care at Discharge : Home/Usp/Foster Care Patient Left Unit Via : Wheelchair Patient Accompanied Off Unit with : Responsible adult DC Instructions Provided & Signed by Pt : Yes Patient Understands D/C Instructions : Yes Verbalized Understanding of D/C Plan By : Family, Patient Patient Instructions Discharge Signed : Yes Did Pt have Specialty Bed or Wound Vac : No Raghu Mascorro RN - 01/17/2023 14:24 EDT * Wayne Zambrano MD: PERFORM, SIGN, VERIFY Event Display: Discharge/Transfer Note Hospital Authored Date: [id number] Patient: VIVIEN PERALES Age: 67 years Sex: Female : 1955 Associated Diagnoses: None Author: Wayne Zambrano MD Discharge Information Principal Discharge Diagnosis Bladder stones: Present on admission - yes. Complication of implanted vaginal mesh: Present on admission - yes. Procedures Procedure Performed: Open cystotomy with open removal of bladder calculus and open excisional removal of urogynecologic pelvic mesh. Discharge condition: good Functional Status: ambulatory Discharge Disposition Home: self care, family. Discharge Date 01/17/2023 Admission Date 01/16/2023 Code Status Full Resuscitation. Hospital Course Significant Results Results: Vital signs : VITAL SIGNS SECTION 01/17/2023 7:00 EDT Temperature 98.6 DegF Temperature Route Oral Pulse Rate 67 bpm Respiratory Rate 18 br/min Systolic Blood Pressure 127 mm Hg Diastolic Blood Pressure 61 mm Hg Blood pressure sites Arm, right Pulse Pressure 66 mm Hg Oxygen Saturation 97 % Mode of Delivery (Oxygen) Room air 01/17/2023 4:59 EDT Early Warning Score 0.00 01/17/2023 4:59 EDT Temperature 98.8 DegF Temperature Route Oral Pulse Rate 66 bpm Respiratory Rate 18 br/min Systolic Blood Pressure 115 mm Hg Diastolic Blood Pressure 55 mm Hg Blood pressure sites Arm, right Mean Arterial Pressure 75 mm Hg Pulse Pressure 60 mm Hg Oxygen Saturation 98 % Mode of Delivery (Oxygen) Room air . Discharge Plan Discharge Disposition Discharge: home. * Raghu Mascorro RN: PERFORM Event Display: Patient Education/Instruction Authored Date: [id number] Inpatient Adult Discharge Instructions [address] [address] Name: VIVIEN PERALES : 1955 Visit: 01/16/2023 06:04:00 Current Date: 01/17/2023 13:12 Account: [id number] Inpatient Adult Discharge Instructions We would like to thank you for allowing us to assist you with your healthcare needs. The following includes patient education materials and information regarding your injury/illness. Our entire staffstrives to provide an excellent experience for our patients and their families. PLEASE ENSURE YOU FOLLOW-UP PER THE INSTRUCTIONS BELOW! ?? YOUR OPINION IS IMPORTANT TO US! Please complete the survey you may receive by mail or email. Your feedback will be used to make improvements to the healthcare experiences of our patients and their families. Surveys are administered by [employer]. ?? If further treatment with your primary care physician or another doctor is recommended, it is important for you to keep the appointment. Call your primary care physician or return to the Emergency Department immediately if your condition worsens, fails to improve, or new symptoms develop. If you need to find a doctor, you can call [facility] for a referral at [phone] or toll free at [phone] or log in to [email or web address].. ?? You can view and manage your care through the patient portal or by using a health care morgan of your choosing. Perfect is a website that allows you to securely view your medical information including your hospital discharge summary, office visit summaries, medications and follow-up visits. You can also request appointments, renew medications, and request access to your medical information using a health care morgan of your choosing, or just ask a question. You can enroll at [email or web address] or register during your next office visit. You have been discharged from [facility], Patient Care Unit: S1. If you have any questions regarding these instructions after you leave, please call us and we will be happy to assist you. [facility] Your Care Team Attending Physician Wayne Zambrano MD Discharging Providers Wayne Zambrano MD Reason for Admission UTI CYSTOLITHALOPAXY OVNCS Your Diagnosis Complication of implanted vaginal mesh Bladder stones Tests Performed Below is a partial list of the tests performed during your hospitalization. You may have had other tests and procedures not included in this list. Please discuss all test results with your provider. Type and Screen Primary Care Provider Brennan Lara MD Advance Directive Health Care Proxy on File No Patient refuses to discuss Discharge Vitals Temperature: 98.4 DegF Height: 155 cm Pulse Rate:??118 bpm??High Weight: 72.4 kg Respiratory Rate:??67 br/min??High Body Mass Index:??30.14 kg/m2??Critical Systolic Blood Pressure: 120 mm Hg Body surface area: 1.77 Diastolic Blood Pressure: 63 mm Hg ?? Oxygen Saturation: 95 % ?? Studies Pending All tests and labs ordered during this hospital stay have been completed unless listed below. Please discuss all pending results with your provider listed above in these instructions. ?? Kidney Stone Analysis What to do next Instructions From Your Doctor Discharge Orders Scheduled Follow-Up Appointments Thursday 9:15 AM EDT ?? Where: [place] [address]- Discharge Medications VIVIEN PERALES :1955 Visit Date:01/16/2023 Medications: Please continue your medications until treatment is completed or stopped by your provider. Medications not listed below should be discontinued. Discuss any questions related to medications with your provider. What How Much When Instructions Next Dose New Bisacodyl (Dulcolax 5 mg oral enteric coated tablet) 2 tab(s) Oral Daily as needed for as needed for constipation [id number] As Needed New Oxybutynin (oxybutynin 5 mg/ 24 hours oral tablet, extended release) 1 tab(s) Oral Daily [id number] 8am 01/18/23 New Oxycodone (oxyCODONE 5 mg oral tablet) 1 tab(s) Oral Every 6 hours as needed for as needed for pain Pickup at [facility] #[id number] As Needed New Sulfamethoxazole/ Trimethoprim (Bactrim DS 800 mg-160 mg oral tablet) 1 tab(s) Oral Daily Pickup at [facility] #[id number] 8am 01/18/23 Changed Docusate (Colace sodium 100 mg oral capsule) 1 capsule Oral Twice a day as needed for for constipation Pickup at [facility] #[id number] 8pm 01/17/23 Changed Docusate (docusate sodium 100 mg oral tablet) 1 tab(s) Oral Daily as needed for for constipation As Needed Unchanged Biotin (biotin 2.5 mg oral tablet) 1 tab(s) Oral Daily 8a 01/18/23 Unchanged Clobetasol Topical (clobetasol 0.05% topical ointment) 1 morgan Topically Daily 8a 01/18/23 Unchanged Estradiol Topical (estradiol 0.1 mg/ g vaginal cream) 1 gram Vaginally Thursday, Thursday and Thursday01/19/23 Unchanged Inulin (Fiber Choice 1.5 g oral tablet, chewable) 1 tab(s) Chew Daily 8a 01/18/23 Unchanged Multivitamin Daily 8a 01/18/23 Unchanged Nitrofurantoin (nitrofurantoin macrocrystals-monohydrate 100 mg oral capsule) 1 capsule Oral Daily in the morning Duration: 14 Days 8a 01/18/23 Unchanged Simvastatin (simvastatin 40 mg oral tablet) 1 tab(s) Oral Daily at supper Dinner 01/17/23 Unchanged Triamcinolone Topical (triamcinolone 0.1% topical cream) 1 morgan Topically 4 times a day as needed for itch/bug bite Duration: 14 Days As Needed Pharmacy Information [facility] #[id number]: [address], [place] [phone] Test Results Below is a partial list of the most recent Laboratory test results done prior to this discharge. You may have had other tests and procedures not included in this list. Please discuss all test resultswith your provider. Type and Screen (01/16/2023) ???Blood Type - O Negative???Antibody Screen - Negative Allergies (NKA means No Known Allergies) cobalt containing compounds??(Eye infection) Problems Active Problems??(1) Obese class I?? Education Materials Below is the list of Educational Leaflet Providered with your Discharge Instructions. Discharge Instructions: Caring for Your Indwelling Urinary Catheter?? Alfaro Catheter Care?? Valuables and Belongings I fully understand and agree that [facility] accepts no responsibility for all my personal property including clothing, toilet articles, radios, jewelry, dentures, hearing aids, rings, money, or any other property that is in my possession or is brought to me after admission. I understand certain valuables may be placed in a hospital safe for a short period of time. I understand that the hospital is not liable for loss or damage due to accident, fire, or other natural occurrence while said property is in the safe. I accept full responsibility for any personal property that I keep with me, and will not hold the hospital responsible in case of loss or disappearance. I acknowledge that i have been encouraged to send valuables and belongings home. ?? Review of Valuable and Belonging List: With patient Date for Pt to Sign Valuables/Belongings: 01/16/23 13:00:00 ?? Other Discharge Information ? Pulmonary Rehab Status?? Pulmonary Rehab Discharge Status?? Respiratory Rate:??67 br/min??High ? Common Emergency Awareness Tips IS IT A STROKE? Act FAST and Check for these signs: FACE Does the face look uneven? ARM Does one arm drift down? SPEECH Does their speech sound strange? TIME Call at any sign of stroke ?? Heart Attack Signs Chest discomfort: Most heart attacks involve discomfort in the center of the chest and lasts more than a few minutes, or goes away and comes back. It can feel like uncomfortable pressure, squeezing, fullness or pain. Discomfort in upper body: Symptoms can include pain or discomfort in one or both arms, back, neck, jaw or stomach. Shortness of breath: With or without discomfort. Other signs: Breaking out in a cold sweat, nausea, or lightheaded. Remember, MINUTES DO MATTER. If you experience any of these heart attack warning signs, call to get immediate medical attention! ?? Smoking can increase your chances of developing chronic health problems and can cause harmful effects to other family members in your house. If you smoke, you are strongly encouraged to quit. Please call [facility] at [phone] or [phone] [employer] [facility] ([phone]) or log in to [email or web address] for referrals to smoking cessation programs. ?? The National Suicide Prevention Hotline is available 24/7 if you or someone you know needs to find a reason to keep living. By calling 2-950-214-niba (6080) you'll be connected to a skilled, trained counselor at a crisis center in your area. INPATIENT DISCHARGE INSTRUCTIONS SIGNATURE PAGE VIVIEN PERALES Location:[facility] Registration Date and Time:01/16/2023 06:04 EDT Primary Care Physician: Jane HOLLOWAY , Brennan Berrios, I VIVIEN PERALES, have received the above patient education materials/instructions and have verbalizedunderstanding. If ambulance or transport services are being used I further acknowledge being given a choice of service. ?? If you need to contact me, please call me at this number: . 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 [id number] Discharge Instructions: Caring for Your Indwelling Urinary Catheter You have been discharged with an indwelling urinary catheter. It's also called a Alfaro catheter. A catheter is a thin, flexible tube. An indwelling urinary catheter has 2 parts. The first part is a tube that drains urine from your bladder. The second part is a bag or other device that collects the urine. The most important thing to remember is that you want to prevent infection. Always wash your hands before handling your catheter bag or tubing. Draining the bedside bag ??? Wash your hands with soap and clean, running water. Or use an alcohol-based hand needle maker thatcontains at least 60% alcohol. ??? Hold the drainage tube over a toilet or measuring container. ???Unclamp the tube and let the bag drain. ??? Don???t touch the tip of the drainage tube or let it touch the toilet or container. ??? You don't need to rinse the bag or drainage tube. ?? Cleaning the drainage tube ??? When the bag is empty, clean the tip of the drainage tube with an alcohol wipe. ??? Clamp the tube. ??? Reinsert the tube into the pocket on the drainage bag. ?? Cleaning your skin and tubing ??? Clean the skin near the catheter with soap and water. ??? Wash your genital area from front to back. ??? Wash the catheter tubing. Always wash the catheter in the direction away from your body. ??? You will be told when and how to change your bag and tubing. ??? Don???t try to remove the catheter by yourself. ??? You may shower with the catheter in place. ?? Emptying a leg bag ??? Wash your hands. ??? Remove the stopper on the bag. ??? Drain the bag into the toilet or a measuring container. Don???t let the tip of the drainage tube touch anything, including your fingers. ??? Clean the tip of the drainage tube with alcohol. ??? Replace the stopper. ?? Follow-up care Make a follow-up appointment, or as directed by your healthcare provider. ?? When to call your healthcare provider Call your healthcare provider right away if you have any of the following: ??? Fever of 100.4??F ( 38??C) or higher, or as directed by your provider ??? Chills ??? Leakage around the catheter insertion site ??? Increased spasms (uncontrollable twitching)??in your??legs, belly (abdomen), or bladder. Occasional mild??spasms are normal. ??? Burning in the urinary tract, penis, or genital area ??? Nausea and vomiting ??? Aching in the lower back ??? Cloudy??or bloody (pink or red) urine, sediment or mucus in the urine, or??bad-smelling urine ?? Last Reviewed Date: 2022 ?? [employer]. All rights reserved. This information is not intended as a substitute for professional medical care. Always follow your healthcare professional's instructions. ?? * [place] HOLLOWAY, Wayne Cloud: PERFORM Event Display: Patient Education Leaflets Authored Date: [id number] Alfaro Catheter Care ?? [id number] Alfaro Catheter Care A Alfaro catheter is a rubber tube that is placed through the urethra and into the bladder. The urethra is the opening where urine comes out. The catheter helps drain urine from the bladder. There is a small balloon on the end of the tube that is inflated after the catheter is put in place. This keeps the catheter from sliding out of the bladder. A Alfaro catheter is used when you are unable to pass urine (urinary retention). It's also used whenthere is loss of bladder control (incontinence). It's also used after bladder or prostate surgery. Home care ??? Finish taking any prescribed antibiotic medicine even if you are feeling better before then. ??? It's important to keep bacteria from getting into the collection bag. Don't disconnect the catheter from the collection bag. ??? Use a leg band to secure the drainage tube, so it doesn't pull on the catheter. ??? Don't try to pull or remove your catheter. This will injure your urethra. It must be removed by your healthcare provider or nurse. ??? Drain the collection bag when it becomesfull using the drain spout at the bottom of the bag. ?? Follow-up care Follow up with your healthcare provider, or as advised. This is for repeat urine testing and for catheter removal or replacement. ?? When to seek medical advice Call your healthcare provider right away if any of these occur: ??? Fever of 100.4??F (38??C) or higher, or as directed by your healthcare provider ??? Bladder pain or fullness ??? Abdominal swelling, nausea or vomiting, or back pain ??? Blood or urine leakage around the catheter ??? Bloody urine coming from the catheter (if a new symptom) ??? Catheter falls out ??? Catheter stops draining for 6 hours ??? Weakness, dizziness, or fainting ?? Last Reviewed Date: 2021 ?? [id number] [employer]. All rights reserved. This information is not intended as a substitute for professional medical care. Always follow your healthcare professional's instructions. ?? Patient Care team information Care Team Personnel Name: Brennan Lara MD Position: [facility] Outreach Member Role: PCP Address: Address: [address] [place] [id number] Name: Michelle Aquino Position: S RN Member Role: Primary Care Nurse Name: Tiki Mahmood RN Position: S RN Member Role: Primary Care Nurse
== END ==
LOC: HO.HMCFM 08:44
PROVIDERS: PCP Family Medicine; Visit Provider Family Medicine
DX: E78.5 Hyperlipidemia, unspecified (principal); Z12.31 Encounter for screening mammogram for malignant neoplasm of breast; Z13.820 Encounter for screening for osteoporosis

== ENCOUNTER 2025-04-06 13:41 | Outpatient (AMB) | payer MEDICARE, SELFPAY ==
--- NOTE | 2025-04-06 14:10 | MHC.PC.OV ---
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: No Allergies cobalt Allergy (Unknown, Verified 04/06/25 14:14) Eye Swelling anesthesia Adverse Reaction (Mild, Uncoded 01/06/24 09:13) Nausea and Vomiting Narcotic Medications Adverse Reaction (Mild, Uncoded 01/06/24 09:13) Nausea and Vomiting Medication List - Last Reconciled 04/06/25 by Brennan Lara MD antiarthritic combination no.2 (glucosamine-chondroitin) mg PO docusate sodium (Stool Softener) 50 mg PO DAILY estradiol 0.01%(0.1mg/gram) grams vaginal kz-omf-svjru-calcium carb-K1 400 mcg-500 mg calcium-20 mcg (Women's 50 Plus Multivitamin) tabs PO simvastatin 40 mg PO DAILY turmeric mg PO Tobacco use date assessed: 06/15/24 Dental Screening Dental Screen Date: 06/15/24 HPI Tested positive for a fecal test HPI Details Pt reports to f/u abnormal fit test. Reports hx of colon polyps. She notes last colonoscopy was about 3 years ago. Pt reports recent episode of dysuria. She had reported pain while trying to urinate and had also reported difficulty urinating. Pt reports some GERD. 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 8. Moving or speaking so slowly that other people could have noticed. Or the opposite - being so fidgety or restless that you have been moving around a lot more than usual: not at all 9. Thoughts that you would be better off or of hurting yourself in some way: not at all Source: Developed by Drs. Norberto Staton, Tresa Mckenna, Ivan Shcneider and colleagues, with an educational gutierrez from [employer]. Thrive Questionnaire Date Thrive assessed: 03/24/25 I am a: Patient What is your living situation today?: I have a steady place to live Within the past 12 months, did the food you bought not last and you didn't have the money to get more?: I choose not to answer this question Within the past 12 months, did you worry whether your food would run out before you got money to buy more?: I choose not to answer this question Do you have trouble paying for medicines?: I choose not to answer this question Do you have trouble getting transportation to medical appointments?: No Do you have trouble paying your heating and electricity bill?: No Do you have trouble taking care of your child, family member or friend?: I choose not to answer this question Do you have trouble with day-to-day activities such as bathing, preparing meals, shopping, managing finances, etc.?: No Are you currently unemployed and looking for a job?: No Are you interested in more education?: No Please select the resources that you would like help with: None Currently or been in a relationship where the following occur: No concerns reported THRIVE Score: 0 AUDIT C Alcohol Use Questionnaire (AUDIT-C) 1. How often do you have a drink containing alcohol?: Never 3. How often do you have six or more drinks on one occasion?: Never Total Score: 0 CHRISTIANO-7 AMB Questionnaire CHRISTIANO-7 Date CHRISTIANO - 7 assessed: 06/15/24 Feeling nervous, anxious, or on edge: 0 = Not at all Not being able to stop or control worryin = Not at all Worrying too much about different things: 0 = Not at all Trouble relaxin = Not at all Being so restless that it is hard to sit still: 0 = Not at all Becoming easily annoyed or irritable: 0 = Not at all Feeling afraid as if something awful might happen: 0 = Not at all Total CHRISTIANO-7 score (0-4 normal; 5-9 mild; 10-14 moderate; 15-21 severe): 0 Source: Developed by Drs. Norberto Staton, Tresa Mckenna, Ivan Schneider and colleagues, with an educational gutierrez from [employer]. Review of Systems Const Denies chills, Denies fatigue, Denies fever(s), Denies headache(s) and Denies weakness ENT Denies dizziness and Denies headache(s) Card Denies dyspnea Resp Denies cough, Denies dyspnea, Denies wheezing and Denies other (shortness of breath) Musc Denies numbness and Denies tingling Neuro Denies dizziness, Denies headache(s), Denies numbness, Denies tingling and Denies weakness Psych Denies anxiety and Denies depression Endo Denies fatigue Aller/Immun Denies wheezing Physical exam (Primary Care) Vital Signs: Last Vital Signs Temp 98.3 F 04/06/25 14:18 Pulse 73 04/06/25 14:18 Resp 14 04/06/25 14:18 BP 130/70 04/06/25 14:18 Pulse Ox 96 04/06/25 14:18 Oxygen Delivery Method Room Air 04/06/25 14:18 BMI result Body Mass Index 31.2 Tobacco/Smoking Status: Tobacco use Status Tobacco use date assessed 06/15/24 04/06/25 14:14 Patient Tobacco Use Status Never used Tobacco 04/06/25 14:14 e-Cigarette/Vaping Use Never Used 04/06/25 14:14 Thrive Assessment: Date of Thrive Assessment Date Thrive assessed 03/24/25 04/06/25 14:14 Currently or been in a relationship where the following occur: No concerns reported Const General: well developed; No acute distress Nutritional Appearance: well nourished Orientation/consciousness: patient oriented x3 HENMT Head: Yes normocephalic and Yes atraumatic Eyes General: appearance normal, both eyes and all related structures Pupils: Equal, round and reactive pupils present EOM: EOMs intact bilaterally Resp Effort & Inspection: normal respiratory effort Auscultation: clear to auscultation bilaterally Cardio Rate: regular rate Rhythm: regular rhythm Heart sounds: S1 normal heart sound present, S2 normal heart sound present, no gallops, no murmurs and no rubs Neuro General: patient oriented x3 and gait normal Cranial nerves: Yes Equal, round and reactive pupils present Psych Affect: normal affect Coding Level of Care Code Est Pt Level 4 (93327) Diagnoses Screening for colon cancer Z12.11 Dysuria R30.0 GERD (gastroesophageal reflux disease) K21.9 Abnormal stool test R19.5 Assessment & Plan Assessment & Plan (1) Screening for colon cancer: Code(s): Z12.11 - Encounter for screening for malignant neoplasm of colon Category: Medical Plan: Patient?has?history?of?colon?polyps?and?family?history?of?colon?cancer. Last?colonoscopy?about?3?years?ago?and?recommended?a?5?year?follow-up However,?patient?had?a?recent?FIT?test?which?was?positive Will?refer?her?to?Gastroenterology?for?follow-up. (2) Dysuria: Code(s): R30.0 - Dysuria Category: Medical Plan: Patient?had?episode?of?pain,?spasm?and?dysuria/burning?at?introitus?and?then?noted a?sudden?release?of?symptoms. She?had?been?unable?to?urinate. She?did?not?have?any?costovertebral?angle?discomfort?or?groin?pain. She?has?a?history?of?rectocele?and?repair. Unclear?cause?but?may?include rectocele?or?bladder?polyp, urinary?stone, clot?or?neoplasm. Checking?labs If?abnormal,?will?refer?her?back?to?her?urologist,??[place] She?will?call?her?urologist?for?sooner?appointment?if?she?has?any?return?of?symptoms. (3) GERD (gastroesophageal reflux disease): Code(s): K21.9 - Gastro-esophageal reflux disease without esophagitis Category: Medical Plan: Trial?famotidine She?is?referred?to?Gastroenterology?due?to?abnormal?FIT?test (4) Abnormal stool test: Code(s): R19.5 - Other fecal abnormalities Plan: Abnormal?FIT?test - see?above Orders: Orders UA CC w/rflx Micro + Cult Today R30.0 - Dysuria, Z00.00 - Encounter for general adult medical examination without abnormal findings Urine Cytology Today R30.0 - Dysuria Referrals Gastroenterology Referral K21.9 - Gastro-esophageal reflux disease without esophagitis, R19.5 - Other fecal abnormalities, Z12.11 - Encounter for screening for malignant neoplasm of colon Medications: New famotidine 20 mg PO DAILY 30 tabs 3RF 30 days
[2025-04-06 14:18] VITALS: BP 130/70; PULSE 73; RESP 14; TEMP 36.8; O2SAT 96; BMI 31.2
== END 2025-04-06 14:51 | disposition home or self-care (01) ==
LOC: HO.HMCFM 13:42
PROVIDERS: PCP Family Medicine; Visit Provider Family Medicine
DX: Z12.11 Encounter for screening for malignant neoplasm of colon (principal); R30.0 Dysuria; K21.9 Gastro-esophageal reflux disease without esophagitis; R19.5 Other fecal abnormalities

== ENCOUNTER → 2025-04-06 13:41 | Outpatient (BNVA) | payer MEDICARE, SELFPAY | PROVIDERS: PCP Family Medicine; Visit Provider Family Medicine | DX: R30.0 Dysuria (principal); K21.9 Gastro-esophageal reflux disease without esophagitis; R19.5 Other fecal abnormalities | CPT/HCPCS: 99212 ==

== ENCOUNTER 2025-04-13 09:30 | Outpatient (REF) | payer MEDICARE, SELFPAY ==
[2025-04-13 11:36] LABS: Alanine Aminotransferase 23 U/L (0-31); Albumin Level 4.6 g/dL (3.5-5.0); Alkaline Phosphatase 76 U/L (39-117); Anion Gap 8 (12-20); Aspartate Amino Transferase 26 U/L (5-31); Bilirubin Total 0.5 mg/dL (0.0-1.0); Blood Urea Nitrogen 21 mg/dL (9-16); Carbon Dioxide 27 mmol/L (22-29); Chloride 109 mmol/L (96-108); Cholesterol 182 mg/dL (<200); Estimated Glomerular Filt Rate > 60; Glucose Fasting 93 mg/dL (60-99); HDL Cholesterol 53 mg/dL (>40); LDL Cholesterol Calculated 105 mg/dL (<100); Potassium 4.3 mmol/L (3.3-5.1); Sodium 140 mmol/L (135-145); Total Protein 7.2 g/dL (6.5-8.0); Triglycerides 120 mg/dL (<150)
== END 2025-04-13 09:31 | disposition home or self-care (01) ==
LOC: HO.WFDLDS 09:30
PROVIDERS: Visit Provider Family Medicine
DX: Z00.00 Encounter for general adult medical examination without abnormal findings (principal); E78.5 Hyperlipidemia, unspecified
CPT/HCPCS: 36415; 80053; 80061

== ENCOUNTER 2025-04-13 10:13 | Outpatient (REF) | payer MEDICARE, SELFPAY ==
[2025-04-13 12:56] LABS: Urine Cytology See Pathology rpt
[2025-04-13 13:03] LABS: Appearance Urine Clear; Color Urine Yellow; Glucose Urine UA Negative (Negative); Leukocyte Esterase Urine Negative (Negative); Nitrite Urine Negative (Negative); Specific Gravity - Urine 1.015 (1.005-1.025); Urine Blood Negative (Negative); Urine Ketones Negative (Negative); Urine Protein Negative (Neg-Trace)
== END 2025-04-13 10:14 | disposition home or self-care (01) ==
LOC: HO.HMGCLNP 10:13
PROVIDERS: PCP Family Medicine; Visit Provider Family Medicine
DX: Z00.00 Encounter for general adult medical examination without abnormal findings (principal); R30.0 Dysuria
CPT/HCPCS: 81003; 88112

== ENCOUNTER 2025-06-21 08:48 | Outpatient (AMB) | payer MEDICARE, SELFPAY ==
--- NOTE | 2025-06-21 08:52 | MHC.PC.OV ---
Vital Signs 06/21/25 08:59 Height 5 ft 1 in Weight 163 lb 4 oz BMI 30.8 BP 116/62 Blood Pressure Location Rt brachial Position Sitting Respiration 14 Pulse 76 Pulse Source Pulse Oximeter Temp 97.7 F Temp Source Temporal Artery Scan Pulse Oximetry (%) 96 Oxygen Delivery Method Room Air Intake Visit Reasons: Annual Physical - see comments Intake Note: Marianela presents in the office today for her annual physocal. Allergies cobalt Allergy (Unknown, Verified 06/21/25 08:55) Eye Swelling anesthesia Adverse Reaction (Mild, Uncoded 06/21/25 08:55) Nausea and Vomiting Narcotic Medications Adverse Reaction (Mild, Uncoded 06/21/25 08:55) Nausea and Vomiting Medication List - Last Reconciled 06/21/25 by Brennan Lara MD antiarthritic combination no.2 (glucosamine-chondroitin) mg PO docusate sodium (Stool Softener) 50 mg PO DAILY estradiol 0.01%(0.1mg/gram) grams vaginal famotidine 20 mg PO DAILY 30 days xu-hbt-ngnve-calcium carb-K1 400 mcg-500 mg calcium-20 mcg (Women's 50 Plus Multivitamin) tabs PO simvastatin 40 mg PO DAILY turmeric mg PO Tobacco use date assessed: 06/21/25 Fall risk assessment: No Falls in past year Last assessed Fall Risk: 06/21/25 Dental Screening Dental Screen Date: 06/21/25 Did you have a dental visit in the last 12 months?: Yes Did you have a dental problem in the last 6 months where you did not have access to dental care?: No Was dental information given to patient?: Patient has dentist HPI Annual Physical - see comments HPI Details 69 y/o female presents for a CPE with f/u labs and health maintenance. Labs drawn 04/13/25. Reviewed labs with pt. Triglycerides 120. TC 182. LDL 105. HDL 53. She is on simvastatin 40mg daily. Bone density last June which showed osteopenia. She reports some LE swelling before she goes to bed. Has an appt. with GI next month. Pt notes she feels famotidine has been helping some. HPI Comments History of Present Illness Details Documentation assistance for Brennan Lara MD, was provided by Alirio Boswell,? [facility] Ab[facility] Muscle Surgeon on 06/21/2025 at 9:12 AM EST. I, Dr. Lara, have read, observed, and verified documentation. ?? 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 1. Little interest or pleasure in doing things: not at all 2. Feeling down, depressed, or hopeless: not at all 3. Trouble falling or staying asleep, or sleeping too much: not at all 4. Feeling tired or having little energy: not at all 5. Poor appetite or overeating: not at all 6. Feeling bad about yourself - or that you are a failure or have let yourself or your family down: not at all 7. Trouble concentrating on things, such as reading the newspaper or watching television: not at all 8. Moving or speaking so slowly that other people could have noticed. Or the opposite - being so fidgety or restless that you have been moving around a lot more than usual: not at all 9. Thoughts that you would be better off or of hurting yourself in some way: not at all Total score: 0 Depression Screening Interpretation: Negative Depression Screening Done: Yes 94453 - PHQ-9 Billing: Yes Source: Developed by Drs. Norberto Staton, Tresa Mckenna, Ivan Schneider and colleagues, with an educational gutierrez from [employer]. Thrive Questionnaire Date Thrive assessed: 06/21/25 I am a: Patient What is your living situation today?: I have a steady place to live Within the past 12 months, did the food you bought not last and you didn't have the money to get more?: I choose not to answer this question Within the past 12 months, did you worry whether your food would run out before you got money to buy more?: I choose not to answer this question Do you have trouble paying for medicines?: I choose not to answer this question Do you have trouble getting transportation to medical appointments?: No Do you have trouble paying your heating and electricity bill?: No Do you have trouble taking care of your child, family member or friend?: I choose not to answer this question Do you have trouble with day-to-day activities such as bathing, preparing meals, shopping, managing finances, etc.?: No Are you currently unemployed and looking for a job?: No Are you interested in more education?: No Please select the resources that you would like help with: None Currently or been in a relationship where the following occur: No concerns reported THRIVE Score: 0 AUDIT C Alcohol Use Questionnaire (AUDIT-C) 1. How often do you have a drink containing alcohol?: Monthly or less 2. How many drinks containing alcohol do you have on a typical day when you are drinking?: 1 or 2 3. How often do you have six or more drinks on one occasion?: Never Total Score: 1 CHRISTIANO-7 AMB Questionnaire CHRISTIANO-7 Date CHRISTIANO - 7 assessed: 06/21/25 Feeling nervous, anxious, or on edge: 0 = Not at all Not being able to stop or control worryin = Not at all Worrying too much about different things: 0 = Not at all Trouble relaxin = Not at all Being so restless that it is hard to sit still: 0 = Not at all Becoming easily annoyed or irritable: 0 = Not at all Feeling afraid as if something awful might happen: 0 = Not at all Total CHRISTIANO-7 score (0-4 normal; 5-9 mild; 10-14 moderate; 15-21 severe): 0 Source: Developed by Drs. Norberto Staton, Tresa Mckenna, Ivan Schneider and colleagues, with an educational gutierrez from [employer]. CHRISTIANO-7 Assessment Billing CHRISTIANO-7 Assessment Tool: CHRISTIANO-7 Assessment 66384 Review of Systems Const Denies chills, Denies fatigue, Denies fever(s), Denies headache(s) and Denies weakness Eyes Denies change in vision ENT Denies dizziness, Denies headache(s), Denies hearing loss, Denies nasal congestion, Denies sinus pain, Denies sinus pressure and Denies sore throat Card Denies chest pain, Denies lightheadedness, Denies dyspnea and Denies other (palpitations) Resp Denies cough, Denies dyspnea and Denies wheezing GI Denies abdominal pain, Denies melena, Denies hematochezia, Denies change in bowel habits, Denies dyspepsia and Denies nausea Denies hematuria and Denies dysuria Musc Denies abnormal gait, Denies myalgias, Denies arthralgias, Denies numbness and Denies tingling Skin/Breast Denies rash, Denies unusual bruising and Denies wounds Neuro Denies abnormal gait, Denies dizziness, Denies headache(s), Denies memory loss, Denies numbness, Denies Sensory deficit (Neuro), Denies tingling and Denies weakness Psych Denies anxiety, Denies depression and Denies memory loss Endo Denies cold intolerance, Denies fatigue, Denies heat intolerance, Denies polydipsia and Denies polyuria Shankar/Lymph Denies easy bleeding and Denies easy bruising Aller/Immun Denies wheezing Physical exam (Primary Care) Vital Signs: Last Vital Signs Temp 97.7 F 06/21/25 08:59 Pulse 76 06/21/25 08:59 Resp 14 06/21/25 08:59 BP 116/62 06/21/25 08:59 Pulse Ox 96 06/21/25 08:59 Oxygen Delivery Method Room Air 06/21/25 08:59 BMI result Body Mass Index 30.8 Tobacco/Smoking Status: Tobacco use Status Tobacco use date assessed 06/21/25 06/21/25 09:02 Patient Tobacco Use Status Never used Tobacco 06/21/25 08:58 e-Cigarette/Vaping Use Never Used 06/21/25 08:58 PHQ-9: PHQ-9 Score PHQ-9: Total score 0 06/21/25 09:12 Depression Screening Interpretation: Negative Thrive Assessment: Date of Thrive Assessment Date Thrive assessed 06/21/25 06/21/25 09:02 Currently or been in a relationship where the following occur: No concerns reported Const General: no acute distress, well developed, alert and awake Nutritional Appearance: well nourished Orientation/consciousness: patient oriented x3 HENSD Head: Yes normocephalic and Yes atraumatic Ears: hearing grossly normal bilaterally and TM's normal bilaterally General nose exam: Normal external nose present and Normal nares present Mouth: Normal oral and palatal mucosa present and moist mucous membranes Teeth and gingiva: dentition normal Throat: Yes posterior oropharynx normal Eyes General: appearance normal, both eyes and all related structures Pupils: Equal, round and reactive pupils present and Pupil accommodation reflex normal EOM: EOMs intact bilaterally Neck Neck: Yes normal visual inspection, Yes no lymphadenopathy and Yes trachea midline Thyroid: Thyroid normal Carotids: no bruits Lymphatic: no lymphadenopathy noted Chest Chest palpation & inspection: normal inspection of the chest Resp Effort & Inspection: normal respiratory effort Auscultation: clear to auscultation bilaterally Cardio Rate: regular rate Rhythm: regular rhythm Heart sounds: S1 normal heart sound present, S2 normal heart sound present, no gallops, no murmurs and no rubs Bruits: no abdominal aortic bruits and no carotid bruits GI Palpation (GI): No Abdominal aortic bruit present, Soft to palpation, nontender, No hepatosplenomegaly present and No Rebound tenderness present Auscultation: normal bowel sounds General: Yes no CVA tenderness Back/Spine/Pelvis Back: no CVA tenderness Cervical Spine: cervical ROM normal and No Cervical spine tenderness Thoracic/Lumbar Spine: thoraco-lumbar ROM normal, No pain with thoraco-lumbar ROM, No thoracic spinal tenderness and No lumbar spinal tenderness Skin Lesions: no lesions Rashes: no rashes Trauma: no lacerations or abrasions Wounds: no wounds Nails: normal Neuro General: patient oriented x3 Cranial nerves: Yes Equal, round and reactive pupils present Cognition (Neuro): normal cognition Gait exam (Neuro): Normal gait present Motor exam (neuro): 5/5 motor strength present throughout Sensory Exam: No Sensory deficit (Neuro) Deep tendon reflexes (DTR's): Right patellar reflex intensity grade: 2+ and Left patellar reflex intensity grade: 2+ Extrem General: Yes normal to inspection and No edema Psych Appearance: grossly normal Affect: normal affect Attitude: cooperative Thought process: Normal thought process present Coding Level of Care Code Est Pt Level 3 (16718) Est Pt Prev Care >65y(01263) Diagnoses Adult general medical exam Z00.00 Hyperlipidemia E78.5 Osteopenia M85.80 GERD (gastroesophageal reflux disease) K21.9 Swelling of lower extremity M79.89 Screening for colon cancer Z12.11 Breast cancer screening by mammogram Z12. Additional Codes CHRISTIANO-7 Assessment Billing - CHRISTIANO-7 Assessment Tool: CHRISTIANO-7 Assessment 95169 ([id number]) PHQ-9 - 86708 - PHQ-9 Billing: Yes ([id number]) Assessment & Plan Assessment & Plan (1) Adult general medical exam: Code(s): Z00.00 - Encounter for general adult medical examination without abnormal findings Category: Medical Plan: 69-year-old female presents for complete physical exam Encouraged healthy diet with active lifestyle and plenty of exercise (2) Hyperlipidemia: Code(s): E78.5 - Hyperlipidemia, unspecified Category: Medical Plan: LDL cholesterol is a little above goal of less 100 For now she will continue simvastatin as prescribed. Encouraged a diet lower in saturated fats and cholesterol. Encouraged weight loss and exercise. (3) Osteopenia: Code(s): M85.80 - Other specified disorders of bone density and structure, unspecified site Category: Medical Plan: Osteopenia seen on bone density test last year. Will continue screen every 2 years (4) GERD (gastroesophageal reflux disease): Code(s): K21.9 - Gastro-esophageal reflux disease without esophagitis Category: Medical Plan: Had given patient a script for famotidine which she says helps partially. She has an appointment with Gastroenterology next month (5) Swelling of lower extremity: Code(s): M79.89 - Other specified soft tissue disorders Category: Medical Plan: Some lower extremity swelling and she is on her feet for long periods of time No orthopnea or dyspnea Resolves with lying down Advised her to elevate her legs. Avoid salt and sodium Can use OTC compression stockings If worsening would give her prescription compression stockings (6) Screening for colon cancer: Code(s): Z12.11 - Encounter for screening for malignant neoplasm of colon Category: Medical Plan: Patient says she had a colonoscopy about 3 years ago and was told to follow-up in 5 years. She has an upcoming appointment with Gastroenterology (7) Breast cancer screening by mammogram: Code(s): Z12.31 - Encounter for screening mammogram for malignant neoplasm of breast Category: Medical Plan: Mammogram in June was negative for malignancies Will continue annual screening Orders: Orders Lipid Panel Today E78.5 - Hyperlipidemia, unspecified, Z00.00 - Encounter for general adult medical examination without abnormal findings Comprehensive [place]. Panel Fast Today E78.5 - Hyperlipidemia, unspecified, Z00.00 - Encounter for general adult medical examination without abnormal findings
[2025-06-21 08:59] VITALS: BP 116/62; PULSE 76; RESP 14; TEMP 36.5; O2SAT 96; BMI 30.8
== END 2025-06-21 09:41 | disposition home or self-care (01) ==
LOC: HO.HMCFM 08:49
PROVIDERS: PCP Family Medicine; Visit Provider Family Medicine
DX: Z00.00 Encounter for general adult medical examination without abnormal findings (principal); E78.5 Hyperlipidemia, unspecified; M85.80 Other specified disorders of bone density and structure, unspecified site; K21.9 Gastro-esophageal reflux disease without esophagitis; M79.89 Other specified soft tissue disorders; Z12.11 Encounter for screening for malignant neoplasm of colon; Z12.31 Encounter for screening mammogram for malignant neoplasm of breast

== ENCOUNTER → 2025-06-21 08:48 | Outpatient (BNVA) | payer MEDICARE, SELFPAY | PROVIDERS: PCP Family Medicine; Visit Provider Family Medicine | DX: Z00.00 Encounter for general adult medical examination without abnormal findings (principal); E78.5 Hyperlipidemia, unspecified; M85.80 Other specified disorders of bone density and structure, unspecified site; K21.9 Gastro-esophageal reflux disease without esophagitis; M79.89 Other specified soft tissue disorders | CPT/HCPCS: 96127; 99397 ==

== ENCOUNTER 2025-07-20 08:30 | Outpatient (AMB) | payer MEDICARE, SELFPAY ==
[2025-07-20 08:50] VITALS: BP 115/65; PULSE 58; O2SAT 95; BMI 30.4
--- NOTE | 2025-07-20 08:50 | A.OFFVIS_ITS ---
Vital Signs 07/20/25 08:50 Height 5 ft 1 in Weight 161 lb BMI 30.4 BP 115/65 Blood Pressure Location Lt brachial Position Sitting Pulse 58 Pulse Oximetry (%) 95 Oxygen Delivery Method Room Air Intake Visit Reasons: Gastroesophageal reflux disease (GERD) Intake Note: Patient new consult for GERD. Patient cc: GERD on and off, denies any other GI issues for today. 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 Accompanied by: Self / Same As Patient Allergies cobalt Allergy (Unknown, Verified 07/20/25 08:49) Eye Swelling anesthesia Adverse Reaction (Mild, Uncoded 06/21/25 08:55) Nausea and Vomiting Narcotic Medications Adverse Reaction (Mild, Uncoded 06/21/25 08:55) Nausea and Vomiting Medication List - Last Reconciled 07/20/25 by Jing Garrett CNP antiarthritic combination no.2 (glucosamine-chondroitin) mg PO docusate sodium (Stool Softener) 50 mg PO DAILY estradiol 0.01%(0.1mg/gram) grams vaginal famotidine 20 mg PO DAILY 30 days dl-dtr-znnsm-calcium carb-K1 400 mcg-500 mg calcium-20 mcg (Women's 50 Plus Multivitamin) tabs PO simvastatin 40 mg PO DAILY turmeric mg PO HPI HPI Gastroesophageal reflux disease (GERD): Details: Patient is a 69-year-old female with PMH of obesity, hyperlipidemia and osteopenia. Referred by PCP for evaluation of positive fit test. Positive fit test completed 03/01/2025. Previous colonoscopies (every five years) by outside facilities have revealed only polyps. No current GI complaints of abdominal pain, diarrhea, hematochezia, or significant nausea/vomiting. Bowel movements occur daily or every other day; longstanding constipation managed with daily stool softener. No notable blood in stool or recent changes in bowel habits. Reports intermittent mid-chest pressure described as non-burning, typically several times weekly, without clear triggers, sometimes present even when fasting. Relieved, though not completely, by daily famotidine. No regurgitation, odynophagia, or significant dysphagia. Cardiac workup performed in the past following similar symptoms, including EKG, stress test (last in 2022), and cardiac cath, all negative. Weight has remained stable; no unexplained loss. Patient also reports remote episode of urinary retention, presumed passed renal stone, resolved spontaneously. History of osteopenia noted, impacting consideration for certain medications. No current cardiac, pulmonary, or symptoms. father with CRC, dx in ? 50s Patient denies: fever/chills, n/v, appetite changes, regurgitation,dysphasia, unintentional wt loss, ab pain or melena/hematochezia. Social hx: -ETOH use, 1-2x/year -denies recreational drug use -non-smoker - family hx as below -denies personal hx of CA -experiences post sedation nausea, but otherwise has tolerated anesthesia in the past wihtout difficulty. [facility] Medical History (Updated 07/20/25 @ 09:29 by Jing Garrett CNP) Positive FIT (fecal immunochemical test) Chest pressure Surgical History H/O right inguinal hernia repair History of repair of rectocele Family History (Updated 07/20/25 @ 09:13 by Jing Garrett CNP) Brother FHx: mental illness Anxiety Prostate cancer Sister FHx: mental illness Anxiety Father FHx: mental illness Anxiety Colon cancer Social History Housing: House Alcohol intake: current Patient Tobacco Use Status: Never used Tobacco e-Cigarette/Vaping Use: Never Used Second Hand Smoke Exposure: No service: No Current occupational status: employed 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 Cognitive needs: No Hearing needs: No Vision needs: Yes (Last eye exam 2021) Review of Systems Const Reports as per HPI ENT Reports as per HPI Card Reports as per HPI Resp Reports as per HPI GI Reports as per HPI Reports as per HPI Physical Exam Vital Signs: Last Vital Signs Pulse 58 07/20/25 08:50 BP 115/65 07/20/25 08:50 Pulse Ox 95 07/20/25 08:50 Oxygen Delivery Method Room Air 07/20/25 08:50 BMI result Body Mass Index 30.4 Const General: healthy appearing, no acute distress and well developed Nutritional Appearance: average body habitus Orientation/consciousness: patient oriented x3 HEENT Head: Yes normal to inspection, Yes normocephalic and Yes atraumatic Face and sinus: Yes normal facial exam Eyes General: appearance normal, both eyes and all related structures Neck Neck: Yes normal visual inspection Resp Effort & Inspection: normal respiratory effort, able to speak in complete sentences, no tracheal deviation and symmetric chest movement Auscultation: clear to auscultation bilaterally Cardio Jugular venous distension: no JVD Rate: regular rate Rhythm: regular rhythm Heart sounds: S1 normal heart sound present, S2 normal heart sound present, no gallops and no murmurs GI Inspection: Yes normal to inspection and No distended Palpation (GI): Soft to palpation, not firm, nontender and No hepatosplenomegaly present Auscultation: normal bowel sounds Neuro General: patient oriented x3 Gait exam (Neuro): Normal gait present Psych Appearance: grossly normal Mental Status: mental status grossly normal Speech and movement: Normal speech and movement present Affect: normal affect Attitude: cooperative Thought process: Normal thought process present Thought content: Normal thought content present Insight: Good insight present (Psych) Judgement: Good judgement present (Psych) Assessment & Plan Assessment & Plan (1) Positive FIT (fecal immunochemical test): Code(s): R19.5 - Other fecal abnormalities Category: Medical Plan: Positive non-invasive stool test; family hx colon CA; previous polyps; age- appropriate screening. Medications: -prescriptions for laxative tablets and MiraLax sent to pharmacy; instructions for Gatorade purchase and clear liquid diet given. Patient educated on scheduling process, procedure preparation, including avoiding certain foods and ensuring clear liquid intake Advised on necessity for ride post-procedure due to sedation. (2) Chest pressure: Code(s): R07.89 - Other chest pain Category: Medical Plan: Atypical, intermittent mid-chest pressure not consistently associated with food intake or exertion, not fully relieved by famotidine. Prior negative cardiac workups but new since last evaluation. Risk factors: hypercholesterolemia, elevated BMI, FHx cardiac dz. Additional Testing: -Order exercise stress test prior to sedation; proceed with further cardiac workup or cardiology referral if results abnormal. - recommend upper endoscopy (EGD) to further evaluate upper GI symptoms Medication Management: Continue famotidine; pt may increase to BID prn symptoms (up to 40mg/24h). Avoid PPI due to osteopenia hx unless severe/worsening symptoms. Lifestyle Recommendations: Continue to identify triggers (diet vs activity). Maintain wt loss/healthy lifestyle. Follow-Up: Review stress test results in portal; proceed with GI procedures if work unremarkable. Report any new or worsening sx to clinic. Plan Follow-up after endoscopy or sooner as needed Time: I spent a total of 45 minutes on the date of encounter which includes: Preparing to see the patient (reviewed previous documentation, test results and medical history) Performing a medically appropriate exam and/or evaluation Ordering medications, tests, and procedures Documenting clinical information in the health record Orders: Orders CA stress test 07/20/25 R07.89 - Other chest pain Referrals GI Procedure Notification K21.9 - Gastro-esophageal reflux disease without esophagitis, R19.5 - Other fecal abnormalities, Z12.11 - Encounter for screening for malignant neoplasm of colon Medications: New polyethylene glycol 3350 (Miralax) per colonoscopy prep instructions 238 grams PO ONCE 238 grams 0RF bisacodyl Take per colonoscopy instructions 5 mg PO ONCE 4 tabs 0RF Changed 2 From famotidine 20 mg PO DAILY 30 days 30 tabs 3RF To famotidine Take one tablet daily. Can repeat second dose at bedtime as needed 20 mg PO BID 180 tabs 1RF 30 days Coding Level of Care Code New Pt New Pt Level 4 (36653) Patient Type New Diagnoses Positive FIT (fecal immunochemical test) R19.5 Chest pressure R07.89
== END 2025-07-20 09:47 | disposition home or self-care (01) ==
LOC: HO.HGI 08:32
PROVIDERS: PCP Family Medicine; Visit Provider Nurse Practitioner Family
DX: R19.5 Other fecal abnormalities (principal); R07.89 Other chest pain
CPT/HCPCS: 99204

== ENCOUNTER → 2025-07-20 08:30 | Outpatient (BNVA) | payer MEDICARE, SELFPAY | PROVIDERS: PCP Family Medicine; Visit Provider Nurse Practitioner Family | DX: R19.5 Other fecal abnormalities (principal); K59.00 Constipation, unspecified; R07.89 Other chest pain; F10.20 Alcohol dependence, uncomplicated | CPT/HCPCS: 99202 ==

== ENCOUNTER 2025-07-27 07:39 | Outpatient (REF) | payer MEDICARE, SELFPAY | END 2025-07-27 07:40 | disposition home or self-care (01) | LOC: HO.MAMMO 07:39 | PROVIDERS: PCP Family Medicine; Visit Provider Family Medicine | DX: Z12.31 Encounter for screening mammogram for malignant neoplasm of breast (principal) | CPT/HCPCS: 77063; 77067 ==

== ENCOUNTER → 2025-07-27 08:00 | Outpatient (BNV) | payer MEDICARE, SELFPAY | PROVIDERS: PCP Family Medicine; Visit Provider Internal Medicine | DX: Z12.31 Encounter for screening mammogram for malignant neoplasm of breast (principal) | CPT/HCPCS: 77063; 77067 ==

== ENCOUNTER → 2025-09-07 07:57 | Outpatient (REF) | payer MEDICARE, SELFPAY ==
--- NOTE | 2025-09-07 07:59 | CA_ITS ---
Acquisition Time: 2025-09-07 07:59:28 Total Exercise Time: 00:05:22 Test Indications: CP Medications: SEE H&P Protocol: JULIEN Max HR: 150 BPM 101% of Pred: 148 BPM Max BP: 190/80 mmHG Max Work Load: 7.0 METS Exercise stress test with exercise 5 mins 22 sec sof Julien Protocol, achieving 101% MPHR, with reports of SOB, 1/10 mid chest tightness in recovery, with isolated PACs adn PVCs, rare atrial couplets, with normotensive response to exercise. With borderline ST changes inferiorly, warranting further eval. Will recommend stress test with nuclear imagings. Chest tightness resolved and breathing improved to baseline. Test reviewed with Dr. Acevedo. Referred By: Jing Garrett Electronically Signed By: Jose Tiwari
--- OUTSIDE RECORDS SUMMARY | 2025-09-07 07:59 | XMS_ITS ---
Author Organization Unknown ENCOUNTERS Encounter Performer Location Date Diagnosis Diagnosis Status Lab [address] [id number] [facility] [address] [address] [id number] [facility] [address] [id number] [facility] [address] [address] [id number] [facility] *Note: Encounters from your own facility or health system may be excluded. Allergies, Adverse Reactions, Alerts Allergen Type Severity Identification Date Medications Name Date Quantity Days Supplied GPI Number
== END ==
LOC: HO.CARD 07:57
PROVIDERS: PCP Family Medicine; Visit Provider Nurse Practitioner Family
DX: R07.89 Other chest pain (principal)
CPT/HCPCS: 93017

== ENCOUNTER → 2025-09-07 07:59 | Outpatient (BNV) | payer MEDICARE, SELFPAY | PROVIDERS: PCP Family Medicine | DX: I49.1 Atrial premature depolarization (principal); I49.3 Ventricular premature depolarization; R06.02 Shortness of breath; R07.89 Other chest pain | CPT/HCPCS: 93016; 93018 ==

== ENCOUNTER 2025-10-06 13:16 | Outpatient (AMB) | payer MEDICARE, SELFPAY ==
--- NOTE | 2025-10-06 13:11 | MHC.PC.OV ---
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 Required: No Post menopausal: Yes Patient : No Allergies cobalt Allergy (Unknown, Verified 10/06/25 13:13) Eye Swelling anesthesia Adverse Reaction (Mild, Uncoded 10/06/25 13:13) Nausea and Vomiting Narcotic Medications Adverse Reaction (Mild, Uncoded 10/06/25 13:13) Nausea and Vomiting Medication List - Last Reconciled 10/06/25 by Brennan Lara MD bisacodyl 5 mg PO ONCE docusate sodium (Stool Softener) 50 mg PO DAILY estradiol 0.01%(0.1mg/gram) grams vaginal famotidine 20 mg PO BID 30 days em-rqa-uakrs-calcium carb-K1 400 mcg-500 mg calcium-20 mcg (Women's 50 Plus Multivitamin) tabs PO simvastatin 40 mg PO DAILY turmeric mg PO Tobacco use date assessed: 10/06/25 Dental Screening Dental Screen Date: 10/06/25 Did you have a dental visit in the last 12 months?: Yes Did you have a dental problem in the last 6 months where you did not have access to dental care?: No Was dental information given to patient?: Patient has dentist HPI stress test results HPI Details 70 y/o female presents to f/u abnormal stress test. Pt had described intermittent chest pressure. Stress test was ordered. Stress test 09/07/[address] changes inferiorly, warranting further eval. [facility] Medical History (Updated 09/07/25 @ 13:21 by Jing Garrett CNP) Encounter for pre-operative cardiovascular clearance Abnormal stress test Positive FIT (fecal immunochemical test) Chest pressure Surgical History H/O right inguinal hernia repair History of repair of rectocele Family History Brother FHx: mental illness Anxiety Prostate cancer Sister FHx: mental illness Anxiety Father FHx: mental illness Anxiety Colon cancer Social History (Updated 10/06/25 @ 13:15 by Nahomi Batres CMA) Housing: House Alcohol intake: current Patient Tobacco Use Status: Never used Tobacco e-Cigarette/Vaping Use: Never Used Second Hand Smoke Exposure: No Use of substances other than those prescribed or required for medical reasons: No Patient : No service: No Current occupational status: employed 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 Cognitive needs: No Hearing needs: No Vision needs: Yes (Last eye exam 2021) Questionnaire Thrive Questionnaire Date Thrive assessed: 03/24/25 I am a: Patient What is your living situation today?: I have a steady place to live Within the past 12 months, did the food you bought not last and you didn't have the money to get more?: I choose not to answer this question Within the past 12 months, did you worry whether your food would run out before you got money to buy more?: I choose not to answer this question Do you have trouble paying for medicines?: I choose not to answer this question Do you have trouble getting transportation to medical appointments?: No Do you have trouble paying your heating and electricity bill?: No Do you have trouble taking care of your child, family member or friend?: I choose not to answer this question Do you have trouble with day-to-day activities such as bathing, preparing meals, shopping, managing finances, etc.?: No Are you currently unemployed and looking for a job?: No Are you interested in more education?: No Please select the resources that you would like help with: None Currently or been in a relationship where the following occur: No concerns reported THRIVE Score: 0 CHRISTIANO-7 AMB Questionnaire CHRISTIANO-7 Date CHRISTIANO - 7 assessed: 06/21/25 Source: Developed by Drs. Norberto Staton, Tresa Mckenna, Ivan Schneider and colleagues, with an educational gutierrez from [employer]. Review of Systems Const Denies chills, Denies fatigue, Denies fever(s), Denies headache(s) and Denies weakness ENT Denies dizziness and Denies headache(s) Card Denies dyspnea Resp Denies cough, Denies dyspnea, Denies wheezing and Denies other (shortness of breath) Musc Denies numbness and Denies tingling Neuro Denies dizziness, Denies headache(s), Denies numbness, Denies tingling and Denies weakness Psych Denies anxiety and Denies depression Endo Denies fatigue Aller/Immun Denies wheezing Physical exam (Primary Care) Tobacco/Smoking Status: Tobacco use Status Tobacco use date assessed 10/06/25 10/06/25 13:16 Patient Tobacco Use Status Never used Tobacco 10/06/25 13:16 e-Cigarette/Vaping Use Never Used 10/06/25 13:16 Thrive Assessment: Date of Thrive Assessment Date Thrive assessed 03/24/25 10/06/25 13:16 Currently or been in a relationship where the following occur: No concerns reported Telehealth Telehealth Telehealth Platform: Telephone Location of provider rendering services: practice address Location of patient: address on file Patient Identification confirmed using: Name, : Yes Telehealth method: voice only Patient verbally consented to treatment: Yes Patient verbally consented to billing insurance company: Yes Patient informed of any privacy concerns related to visit: Yes Coding Level of Care Code Tele Est Pt Level 2 (67949) Diagnoses Abnormal stress test R94.39 Assessment & Plan Assessment & Plan (1) Abnormal stress test: Code(s): R94.39 - Abnormal result of other cardiovascular function study Category: Medical Plan: Stress test ordered by Gastroenterology for intermittent atypical chest pressure, not reliably associated with food or exercise. Patient underwent stress test and had some chest tightness during recovery phase. Stress test showed borderline ST changes inferiorly, warranting further eval. Recommended repeat stress test with myocardial perfusion imaging. Ordered nuclear stress test. Orders: Orders CA stress test Today R94.39 - Abnormal result of other cardiovascular function study NM cardiolite stress test Today R94.39 - Abnormal result of other cardiovascular function study
== END 2025-10-06 13:40 | disposition home or self-care (01) ==
LOC: HO.HMCFM 13:16
PROVIDERS: PCP Family Medicine; Visit Provider Family Medicine
DX: R94.39 Abnormal result of other cardiovascular function study (principal)

== ENCOUNTER → 2025-10-12 08:40 | Outpatient (REF) | payer MEDICARE, SELFPAY ==
--- NOTE | 2025-10-12 08:41 | CA_ITS ---
Acquisition Time: 2025-10-12 08:52:03 Total Exercise Time: 00:05:00 Test Indications: Abnormal ECG CP Medications: FAMOTIDINE SIMVASTATIN Protocol: JULIEN Max HR: 153 BPM 103% of Pred: 148 BPM Max BP: 148/68 mmHG Max Work Load: 6.9 METS Exercise stress test with exercise 5 mins of Julien Protocol, achieving 103% MPHR, with reports of SOB, no chest pain, with isolated PACs and PVCs, with normotensive response to exercise. With ST depression inferiorly and anterolaterally meeting criteria for ischemia. In recovery, breathing improved and pt feeling back to baseline. ST sgement improved. Nuclear images pending. Test reviewed with Dr. Hankins. Referred By: Brennan Lara Electronically Signed By: Jose Tiwari
--- OUTSIDE RECORDS SUMMARY | 2025-10-12 09:09 | XMS_ITS ---
Author Organization Unknown ENCOUNTERS Encounter Performer Location Date Diagnosis Diagnosis Status Lab [address] [address] [id number] [facility] [address] [address] [id number] [facility] [address] [address] [id number] [facility] [address] [address] [id number] [facility] *Note: Encounters from your own facility or health system may be excluded. Allergies, Adverse Reactions, Alerts Allergen Type Severity Identification Date Medications Name Date Quantity Days Supplied GPI Number
== END ==
LOC: HO.CARD 08:40
PROVIDERS: PCP Family Medicine; Visit Provider Family Medicine
DX: R94.39 Abnormal result of other cardiovascular function study (principal)
CPT/HCPCS: 78452; 93017; A9500

== ENCOUNTER → 2025-10-12 08:41 | Outpatient (BNV) | payer MEDICARE, SELFPAY | PROVIDERS: PCP Family Medicine | DX: R06.02 Shortness of breath (principal); R94.31 Abnormal electrocardiogram [ECG] [EKG] | CPT/HCPCS: 78452; 93016; 93018 ==

== ENCOUNTER 2025-10-25 13:07 | Outpatient (AMB) | payer MEDICARE, SELFPAY ==
[2025-10-25 13:18] VITALS: BP 120/62; PULSE 71; BMI 30.4
--- NOTE | 2025-10-25 13:18 | MHC.OFFVIS ---
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 nuclear/clear for gi Allergies cobalt Allergy (Unknown, Verified 10/06/25 13:13) Eye Swelling anesthesia Adverse Reaction (Mild, Uncoded 10/06/25 13:13) Nausea and Vomiting Narcotic Medications Adverse Reaction (Mild, Uncoded 10/06/25 13:13) Nausea and Vomiting Medication List - Last Reconciled 10/25/25 by Josemanuel Mancera MD bisacodyl 5 mg PO ONCE docusate sodium (Stool Softener) 50 mg PO DAILY famotidine 20 mg PO BID 30 days gi-mtg-xfzde-calcium carb-K1 400 mcg-500 mg calcium-20 mcg (Women's 50 Plus Multivitamin) tabs PO simvastatin 40 mg PO DAILY turmeric 800 mg PO HPI Comments Details: History of Present Illness The patient is a 70-year-old female presenting for evaluation of chest pain and an abnormal stress test. She reports recurrent intermittent chest pain for approximately one year, which occurs randomly and is not associated with activity. The pain is located in the central to left upper chest, can last for up to 10 minutes, and resolves spontaneously. She denies that physical activity, such as walking or climbing stairs, or exposure to cold brings on the pain, though she does report getting out of breath with stairs. Approximately 10 years ago, she experienced similar pain and underwent a cardiac catheterization in [place], which she reports showed no blockages. She has a history of a heart murmur from childhood, though it is not audible on today's exam. She is scheduled for a colonoscopy for evaluation of blood in her stool. She takes famotidine, prescribed by her primary care physician for possible acid reflux, although she denies having symptoms of reflux. [facility] Medical History (Updated 10/25/25 @ 13:38 by Josemanuel Mancera MD) Encounter for pre-operative cardiovascular clearance Abnormal stress test Positive FIT (fecal immunochemical test) Chest pressure Surgical History H/O right inguinal hernia repair History of repair of rectocele Family History (Updated 10/25/25 @ 13:28 by Regla Sands) Brother FHx: mental illness Anxiety Prostate cancer Sister FHx: mental illness Anxiety Father FHx: mental illness Anxiety Colon cancer Mother COPD (chronic obstructive pulmonary disease) Social History (Updated 10/25/25 @ 13:28 by Regla Sands) Housing: House Alcohol intake: current Alcohol intake frequency: holidays/special occasions only Patient Tobacco Use Status: Never used Tobacco e-Cigarette/Vaping Use: Never Used Second Hand Smoke Exposure: No service: No Current occupational status: employed 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 Cognitive needs: No Hearing needs: No Vision needs: Yes (Last eye exam 2021) Review of Systems Const Denies weakness ENT Reports dizziness Card Reports chest pain, Reports chest pain at rest, Reports chest pain with activity, Denies syncope, Denies rapid heart rate, Denies pedal edema, Denies edema, Denies leg edema, Denies lightheadedness, Denies palpitations, Reports dyspnea, Reports dyspnea on exertion and Denies orthopnea Resp Denies cough, Reports dyspnea and Reports dyspnea on exertion GI Denies hematochezia and Denies change in stool character Musc Denies abnormal gait, Denies muscle cramps, Denies muscle weakness, Denies numbness, Denies radiating pain into limb and Denies tingling Neuro Denies abnormal gait, Reports dizziness, Denies syncope, Denies numbness, Denies tingling and Denies weakness Endo Denies palpitations Physical Exam Vital Signs: Last Vital Signs Pulse 71 10/25/25 13:18 BP 120/62 10/25/25 13:18 BMI result Body Mass Index 30.4 Office Procedures EKG Details: EKG with sinus rhythm at 71/Min; rightward axis; nonspecific ST-[place]; [place] [id number]-[id number], Complete Assessment & Plan Assessment & Plan (1) Precordial chest pain: Code(s): R07.2 - Precordial pain Category: Medical (2) Abnormal stress test: Code(s): R94.39 - Abnormal result of other cardiovascular function study Category: Medical Plan: Myocardial perfusion study thanks equivocal for distal lateral ischemia. In the EKG part, reached target heart rate and had no chest pain but abnormal EKG. In the ETT prior to that, had one/10 chest tightness during recovery with EKG abnormalities. Plan Assessment and Plan 1. Atypical chest pain and abnormal nuclear stress test The patient's presentation of non-exertional chest pain is atypical for cardiac ischemia. However, a recent nuclear stress test was abnormal, suggesting a possible perfusion defect, though this is discordant with her clinical symptoms and could be a false positive related to breast attenuation. Given the abnormal test, further investigation is warranted to rule out coronary artery disease. A cardiac CT angiogram is recommended as a non-invasive diagnostic step. This is preferred over a cardiac catheterization due to the patient's history of blood in the stool, as catheterization with stenting would require blood thinners that could exacerbate bleeding. 2. History of heart murmur The patient reports a history of a heart murmur from childhood, but no murmur was appreciated on today's examination. To formally evaluate her heart valves, an echocardiogram (heart ultrasound) will be ordered. 3. Coordination of care The patient will be traveling to [place] and will return at the end of November. The cardiac CT will be performed at [facility], and the echocardiogram will be done in [place]. The scheduling office will contact her to arrange these appointments upon her return. Discussion Notes I discussed with the patient and her [id number] that her chest pain symptoms are atypical for a cardiac origin, as they are not triggered by physical activity. However, due to her abnormal nuclear stress test, we must investigate further to rule out any blockages in her heart arteries. I explained the two main options for further testing: a cardiac CT angiogram or a cardiac catheterization. I noted that while a catheterization could allow for immediate treatment with a stent if a blockage were found, this would require her to take blood thinners, which is risky given her history of blood in the stool and pending colonoscopy. We mutually agreed that a cardiac CT scan would be a safer initial diagnostic step. I also addressed her childhood history of a heart murmur, explaining that although I do not hear one now, an echocardiogram (heart ultrasound) is the appropriate test to visualize the heart valves and function. I informed them that both the CT scan and the echocardiogram will be scheduled for December, after she returns from [place]. The patient and her [id number] understood and agreed with the plan. Patient was informed and verbally consented to the use of an ambient scribe for clinic note documentation during this visit. Patient Instructions - We have ordered two tests to further check your heart: a CT scan and an ultrasound of your heart (echocardiogram). - Our office will call you to schedule these tests for sometime in December, after you return from your trip to [place]. - The CT scan of your heart will be done at [facility]. - The ultrasound of your heart will be done at the clinic in [place]. - It is important to complete these tests to make sure your heart is healthy, even though your symptoms may not seem like they are from your heart. Orders: Orders Basic Metabolic Panel Today R07.2 - Precordial pain CA echo transthoracic complete Today R07.2 - Precordial pain CT Cardiac Coronary Angio Today I25.10 - Atherosclerotic heart disease of agdaag[place] coronary artery without angina pectoris, R07.2 - Precordial pain Coding Level of Care Code New Pt Level 4 (75982) Add On Problem Visit Only Diagnoses Precordial chest pain R07.2 Abnormal stress test R94.39 CPT Codes EKG - CPT: 05392-[id number], Complete ([id number])
--- OUTSIDE RECORDS SUMMARY | 2025-10-25 14:38 | XMS_ITS ---
Author Organization Unknown ENCOUNTERS Encounter Performer Location Date Diagnosis Diagnosis Status Lab [address] [id number] [facility] [address] [id number] [facility] [address] [id number] [facility] [address] [id number] [facility] *Note: Encounters from your own facility or health system may be excluded. Allergies, Adverse Reactions, Alerts Allergen Type Severity Identification Date Medications Name Date Quantity Days Supplied GPI Number
== END 2025-10-25 14:00 | disposition home or self-care (01) ==
LOC: HO.HCS 13:07
PROVIDERS: PCP Family Medicine; Visit Provider Internal Medicine
DX: R07.2 Precordial pain (principal); R94.39 Abnormal result of other cardiovascular function study
CPT/HCPCS: 93010; 99204; G2211

== ENCOUNTER → 2025-10-25 13:07 | Outpatient (BNVA) | payer MEDICARE, SELFPAY | PROVIDERS: PCP Family Medicine; Visit Provider Internal Medicine | DX: R07.2 Precordial pain (principal); R94.39 Abnormal result of other cardiovascular function study | CPT/HCPCS: 93005; 99202 ==